=== PATIENT | male | born 1935 | race Caucasian/White ===

== ENCOUNTER 2023-05-26 13:26 | Outpatient (CLI) | payer MEDICARE ==
--- NOTE | 2023-05-26 14:41 | XRAY Report ---
PROCEDURE: Foot 3 View RT INDICATIONS: FOOT INFECTION,RIGHT TECHNIQUE: 3 views of the foot were acquired. COMPARISON: None. FINDINGS: Bones: There is cortical lucency and erosive changes at the tip of the third distal phalanx. Diffuse ly decreased osseous mineralization. Osteoarthritic changes of the interphalangeal joints and first m etatarsophalangeal. Subchondral lucency at the first MTP, may represent subchondral cystic changes. N o fractures or dislocations. Soft tissues: No suspicious soft tissue calcifications or masses. Soft tissue defect at the tip of t he third digit. Atherosclerotic vascular calcifications. IMPRESSION: Soft tissue defect at the tip of the third digit. The underlying bone at the tip of the distal third phalanx demonstrates cortical lucency and erosive changes, concerning for osteomyelitis. Reviewed by: Dwayne Porras MD on 05/26/2023 2:39 PM PDT Approved by: Dwayne Porras MD on 05/26/2023 2:39 PM PDT Station ID: [id number]
== END 2023-05-26 23:59 | disposition home or self-care (01) ==
LOC: DI.S 13:26
PROVIDERS: ATTEND Physician Assistant
DX: L08.9 Local infection of the skin and subcutaneous tissue, unspecified (principal); M85.871 Other specified disorders of bone density and structure, right ankle and foot

== ENCOUNTER 2023-09-04 10:49 | Outpatient (CLI) | payer MEDICARE ==
[2023-09-04 11:11] LABS: BASOPHILS # (AUTO) 0.1 10^3/uL (0.0-0.1); BASOPHILS % (AUTO) 0.9 %; EOSINOPHILS # (AUTO) 0.1 10^3/uL (0.0-0.7); HCT - HEMATOCRIT 46.5 % (42.0-52.0); HGB - HEMOGLOBIN 15.1 g/dL (14.0-18.0); LYMPHOCYTES # (AUTO) 1.6 10^3/uL (1.5-3.5); LYMPHOCYTES % (AUTO) 24.2 %; MEAN CORPUSCULAR HEMOGLOBIN 31.5 pg (27.0-31.0); MEAN CORPUSCULAR HGB CONC 32.5 g/dL (32.0-36.0); MEAN CORPUSCULAR VOLUME 96.9 fL (80.0-94.0); MEAN PLATELET VOLUME 11.8 fL (7.4-11.4); MONOCYTES # (AUTO) 0.6 10^3/uL (0.0-1.0); MONOCYTES % (AUTO) 9.8 %; NEUTROPHILS % (AUTO) 62.9 %; PLT - PLATELET COUNT 209 10^3/uL (130-450); RED CELL DISTRIBUTION WIDTH 16.7 % (12.0-15.0); WHITE BLOOD COUNT 6.4 x10^3/uL (4.8-10.8)
[2023-09-04 11:23] LABS: CALCIUM 10.4 mg/dL (8.5-10.3); CREATININE 1.4 mg/dL (0.6-1.3); POTASSIUM 4.6 mmol/L (3.5-4.5)
== END 2023-09-04 10:50 | disposition home or self-care (01) ==
LOC: LAB 10:49
PROVIDERS: ATTEND Internal Medicine Cardiovascular Disease
DX: I50.20 Unspecified systolic (congestive) heart failure (principal); I36.1 Nonrheumatic tricuspid (valve) insufficiency; I48.19 Other persistent atrial fibrillation
CPT/HCPCS: 36415; 80048; 83880; 85025

== ENCOUNTER 2023-09-14 09:51 | Outpatient (CLI) | payer MEDICARE ==
[2023-09-14 10:30] LABS: CHOL/HDL RATIO 3.8 (<5.0); CHOLESTEROL 190 mg/dL; HDL CHOLESTEROL 50 mg/dL; LDL CHOLESTEROL,CALCULATED 122 mg/dL; LDL/HDL RATIO 2.4 (<3.6); TRIGLYCERIDES 90 mg/dL (48-352); VLDL CHOLESTEROL 18 mg/dL
[2023-09-14 12:09] LABS: ESTIMATED AVERAGE GLUCOSE 120 mg/dL (70-100); HEMOGLOBIN A1c% 5.8 % (4.27-6.07)
== END 2023-09-14 09:52 | disposition home or self-care (01) ==
LOC: LAB 09:51
PROVIDERS: ATTEND Internal Medicine Cardiovascular Disease
DX: I50.22 Chronic systolic (congestive) heart failure (principal)
CPT/HCPCS: 36415; 80061; 83036; 83721

== ENCOUNTER 2023-10-09 14:02 | Outpatient (CLI) | payer MEDICARE | END 2023-10-09 14:03 | disposition home or self-care (01) | LOC: LAB 14:02 | PROVIDERS: ATTEND Family Medicine | DX: I48.21 Permanent atrial fibrillation (principal); Z51.81 Encounter for therapeutic drug level monitoring; Z79.01 Long term (current) use of anticoagulants | CPT/HCPCS: 36416; 85610 ==

== ENCOUNTER 2023-11-19 17:41 | Outpatient (CLI) | payer MEDICARE ==
[2023-11-19 18:53] LABS: ALBUMIN 3.9 g/dL (3.2-5.5); ALBUMIN/GLOBULIN RATIO 1.4 (1.0-2.2); BILIRUBIN,TOTAL 0.7 mg/dL (0.2-1.0); CALCIUM 9.9 mg/dL (8.5-10.3); CREATININE 1.5 mg/dL (0.6-1.3); TOTAL PROTEIN 6.7 g/dL (6.4-8.9)
== END 2023-11-19 17:42 | disposition home or self-care (01) ==
LOC: LAB 17:41
PROVIDERS: ATTEND Internal Medicine Cardiovascular Disease
DX: I50.22 Chronic systolic (congestive) heart failure (principal)
CPT/HCPCS: 36415; 80053

== ENCOUNTER 2023-11-26 14:06 | Outpatient (CLI) | payer MEDICARE | END 2023-11-26 14:07 | disposition home or self-care (01) | LOC: LAB 14:06 | PROVIDERS: ATTEND Family Medicine | DX: I82.409 Acute embolism and thrombosis of unspecified deep veins of unspecified lower extremity (principal) | CPT/HCPCS: 36416; 85610 ==

== ENCOUNTER 2023-12-01 12:00 | Outpatient (CLI) | payer MEDICARE ==
[2023-12-01 12:51] LABS: PT - PROTHROMBIN TIME 50.6 secs (9.9-12.6)
== END 2023-12-01 12:01 | disposition home or self-care (01) ==
LOC: LAB 12:00
PROVIDERS: ATTEND Family Medicine
DX: I82.409 Acute embolism and thrombosis of unspecified deep veins of unspecified lower extremity (principal)
CPT/HCPCS: 36415; 85610

== ENCOUNTER 2023-12-01 12:01 | Outpatient (CLI) | payer MEDICARE ==
[2023-12-01 12:44] LABS: CALCIUM 9.5 mg/dL (8.5-10.3); CREATININE 1.5 mg/dL (0.6-1.3); POTASSIUM 4.1 mmol/L (3.5-4.5)
== END 2023-12-01 12:02 | disposition home or self-care (01) ==
LOC: LAB 12:01
PROVIDERS: ATTEND Internal Medicine Cardiovascular Disease
DX: I50.22 Chronic systolic (congestive) heart failure (principal); I82.409 Acute embolism and thrombosis of unspecified deep veins of unspecified lower extremity
CPT/HCPCS: 36415; 80048; 85610

== ENCOUNTER 2023-12-10 13:47 | Outpatient (CLI) | payer MEDICARE | END 2023-12-10 13:48 | disposition home or self-care (01) | LOC: LAB 13:47 | PROVIDERS: ATTEND Family Medicine | DX: I73.9 Peripheral vascular disease, unspecified (principal); Z79.01 Long term (current) use of anticoagulants | CPT/HCPCS: 36416; 85610 ==

== ENCOUNTER 2023-12-15 13:39 | Outpatient (CLI) | payer MEDICARE ==
[2023-12-15 14:07] LABS: ALBUMIN 3.7 g/dL (3.2-5.5); ALBUMIN/GLOBULIN RATIO 1.5 (1.0-2.2); BILIRUBIN,TOTAL 0.5 mg/dL (0.2-1.0); CALCIUM 9.4 mg/dL (8.5-10.3); CREATININE 1.6 mg/dL (0.6-1.3); TOTAL PROTEIN 6.2 g/dL (6.4-8.9)
== END 2023-12-15 13:40 | disposition home or self-care (01) ==
LOC: LAB 13:39
PROVIDERS: ATTEND Internal Medicine Cardiovascular Disease
DX: I50.22 Chronic systolic (congestive) heart failure (principal); I82.409 Acute embolism and thrombosis of unspecified deep veins of unspecified lower extremity
CPT/HCPCS: 36415; 80053; 83930; 85610

== ENCOUNTER 2024-01-05 13:11 | Outpatient (CLI) | payer MEDICARE ==
[2024-01-05 13:58] LABS: CALCIUM 9.1 mg/dL (8.5-10.3); CREATININE 1.2 mg/dL (0.6-1.3); POTASSIUM 4.6 mmol/L (3.5-4.5)
--- NOTE | 2024-01-05 15:55 | XRAY Report ---
PROCEDURE: Toe(s) 2+V LT INDICATIONS: LEFT 4TH TOE OSTEOMYELITIS TECHNIQUE: 3 views of the fourth toe(s) acquired. COMPARISON: None. FINDINGS: Bones: No fractures or dislocations. No suspicious bony lesions. Partially visualized fixation of the medial malleolus. Hardware is intact without evidence of hardware fracture or periprosthetic luce ncy to suggest loosening. IP degenerative changes are present. There is erosion of the distal phalanx tuft of the fourth digit. Thinning of the cortex of the fifth distal phalanx tuft is also identified . Soft tissues: No suspicious soft tissue densities. Soft tissue edema is present of the fourth and t o a lesser degree fifth digit. IMPRESSION: Progressive appearance of the distal tuft of the fourth distal phalanx and subtle change in the fifth distal phalanx suggestive of osteomyelitis. Reviewed by: Karla Contreras MD on 01/05/2024 3:54 PM PDT Approved by: Karla Contreras MD on 01/05/2024 3:54 PM PDT Station ID: [id number]
== END 2024-01-05 13:12 | disposition home or self-care (01) ==
LOC: LAB 13:11 → DI 13:12
PROVIDERS: ATTEND Internal Medicine Cardiovascular Disease
DX: M86.672 Other chronic osteomyelitis, left ankle and foot (principal); I73.9 Peripheral vascular disease, unspecified; I50.22 Chronic systolic (congestive) heart failure; L97.524 Non-pressure chronic ulcer of other part of left foot with necrosis of bone
CPT/HCPCS: 36415; 73660; 80048

== ENCOUNTER 2024-01-11 16:38 | Emergency (ER) | payer MEDICARE ==
[2024-01-11 17:10] VITALS: BP 112/58; O2SAT 100
[2024-01-11 17:28] LABS: BASOPHILS % (AUTO) 0.5 %; EOSINOPHILS # (AUTO) 0.1 10^3/uL (0.0-0.7); EOSINOPHILS % (AUTO) 1.4 %; HCT - HEMATOCRIT 33.4 % (42.0-52.0); HGB - HEMOGLOBIN 10.9 g/dL (14.0-18.0); LYMPHOCYTES # (AUTO) 0.8 10^3/uL (1.5-3.5); LYMPHOCYTES % (AUTO) 12.8 %; MEAN CORPUSCULAR HEMOGLOBIN 32.3 pg (27.0-31.0); MEAN CORPUSCULAR HGB CONC 32.6 g/dL (32.0-36.0); MEAN CORPUSCULAR VOLUME 99.1 fL (80.0-94.0); MEAN PLATELET VOLUME 11.4 fL (7.4-11.4); MONOCYTES # (AUTO) 0.6 10^3/uL (0.0-1.0); MONOCYTES % (AUTO) 9.7 %; NEUTROPHILS # (AUTO) 4.9 10^3/uL (1.5-6.6); NRBC ABSOLUTE COUNT (AUTO) 0.12 x10^3/uL; NUCLEATED RED BLOOD CELLS AUTO 1.9 /100WBC; PLT - PLATELET COUNT 282 10^3/uL (130-450); RED BLOOD COUNT 3.37 10^6/uL (4.70-6.10); RED CELL DISTRIBUTION WIDTH 21.1 % (12.0-15.0); WHITE BLOOD COUNT 6.5 x10^3/uL (4.8-10.8)
[2024-01-11 17:36] LABS: PARTIAL THROMBOPLASTIN TIME 43.8 secs (24.9-33.3)
[2024-01-11 17:40] LABS: ALBUMIN 3.7 g/dL (3.2-5.5); ALBUMIN/GLOBULIN RATIO 1.5 (1.0-2.2); BILIRUBIN,TOTAL 0.9 mg/dL (0.2-1.0); CALCIUM 9.6 mg/dL (8.5-10.3); CREATININE 1.4 mg/dL (0.6-1.3); INR 2.7 (0.8-1.2); POTASSIUM 3.7 mmol/L (3.5-4.5); PT - PROTHROMBIN TIME 27.8 secs (9.9-12.6); TOTAL PROTEIN 6.2 g/dL (6.4-8.9)
--- NOTE | 2024-01-11 17:41 | ED Physician Documentation ---
History of Present Illness - Stated complaint Stated Complaint: ABNORMAL LABS - Chief complaint Chief Complaint: General - History obtained from History obtained from: Patient, Family - History of Present Illness Timing: How many weeks ago (1) Pain level max: 0 Pain level now: 0 - Additonal information Additional information: Patient is a 88-year-old male who presents to the emergency department stating that he was told to come in because his "blood counts were low" on a outpatient blood draw 1 week ago. His family states that he has been less active than usual. The patient states that he has not had any blood in the stool. No dark stools. No difficulty breathing. Has a history of heart failure and does have swelling in the bilateral feet. Sees Dr. Ramirez at [facility]. No abdominal pain. No chest pain. No vomiting. No fever. No headache. Review of Systems Constitutional: denies: Fever, Chills Respiratory: denies: Cough GI: denies: Vomiting, Hematemesis, Bloody / black stool Skin: denies: Rash Musculoskeletal: denies: Neck pain, Back pain Neurologic: denies: Headache PD PAST MEDICAL HISTORY - Past Medical History Past Medical History: Yes Cardiovascular: Congestive heart failure : Other Other Past Medical History: PAD of the left leg. - Present Medications Home Medications: Ambulatory Orders Medication Instructions Recorded Confirmed Dutasteride 0.5 mg PO DAILY 08/06/23 12/17/23 Furosemide [Lasix] 20 mg PO DAILY 08/06/23 12/17/23 Losartan Potassium 25 mg PO DAILY 08/06/23 12/17/23 Montelukast [Singulair] 10 mg PO QPM 08/06/23 12/17/23 Potassium Chloride 20 meq PO DAILY 08/06/23 12/17/23 Tamsulosin [Flomax] 0.4 mg PO DAILY 08/06/23 12/17/23 Warfarin [Coumadin] 2.5 mg PO DAILY 08/06/23 12/17/23 allopurinoL [Allopurinol] 300 mg PO DAILY 08/06/23 12/17/23 Atorvastatin Calcium 40 mg PO DAILY 09/17/23 12/17/23 Metoprolol Succinate [Toprol Xl] 25 mg PO DAILY 09/17/23 12/17/23 Spironolactone [Aldactone] 25 mg PO BID 09/17/23 12/17/23 Doxycycline Hyclate 100 mg PO BID 30 Days #60 cap 01/05/24 - Allergies Allergies/Adverse Reactions: Allergies Allergy/AdvReac Type Severity Reaction Status Date / Time No Known Drug Allergies Allergy Verified 01/11/24 17:03 - Social History Does the pt smoke?: No Smoking Status: Never smoker PD ED PE NORMAL - Vitals Vital signs reviewed: Yes - General General: Alert and oriented X 3, No acute distress - HEENT HEENT: Moist mucous membranes - Neck Neck: Supple, no meningeal sign - Cardiac Cardiac: RRR, No murmur, Strong equal pulses - Respiratory Respiratory: No respiratory distress, Clear bilaterally - Abdomen Abdomen: Soft, Non tender, Non distended - Derm Derm: Warm and dry - Extremities Extremities: Other (1+ bilateral lower extremity pitting edema.) - Neuro Neuro: Alert and oriented X 3 - Psych Psych: Normal mood, Normal affect Results - Vitals Vitals: Vital Signs - 24 hr 01/11/24 01/11/24 16:57 17:03 Temperature 36.5 C 36.5 C Heart Rate 63 63 Respiratory 18 18 Rate Blood Pressure 112/58 L 112/58 L O2 Saturation 100 100 Oxygen O2 Source Room air - Labs Labs: Laboratory Tests 01/11/24 01/11/24 01/11/24 17:18 17:18 17:18 WBC 6.5 RBC 3.37 L Hgb 10.9 L Hct 33.4 L MCV 99.1 H MCH 32.3 H MCHC 32.6 RDW 21.1 H Plt Count 282 MPV 11.4 Neut # (Auto) 4.9 Lymph # (Auto) 0.8 L [place] # (Auto) 0.6 Eos # (Auto) 0.1 Baso # (Auto) 0.0 Absolute Nucleated RBC 0.12 Nucleated RBC % 1.9 PT 27.8 H INR 2.7 H APTT 43.8 H Sodium 135 Potassium 3.7 Chloride 102 Carbon Dioxide 26 Anion Gap 7.0 BUN 40 H Creatinine 1.4 H Estimated GFR (MDRD) 48 L Glucose 118 H Calcium 9.6 Total Bilirubin 0.9 AST 17 ALT 18 Alkaline Phosphatase 65 Total Protein 6.2 L Albumin 3.7 Globulin 2.5 Albumin/Globulin Ratio 1.5 PD Medical Decision Making - ED course Complexity details: reviewed results, re-evaluated patient, considered differential, d/w patient ED course: Patient is well-appearing, nontoxic. Afebrile. No significant lab abnormalities. Hemoglobin was 9.8 last week, 10.9 today. Does not have any signs of bleeding. INR is therapeutic. His creatinine is improved from usual. Will have him continue his diuretics. No hypoxia. No indication of pulmonary edema. Will have him follow-up with his PCP regarding his anemia. Patient counseled regarding signs and symptoms for which I believe and urgent re- evaluation would be necessary. Patient with good understanding of and agreement to plan and is comfortable going home at this time This document was made in part using voice recognition software. While efforts are made to proofread this document, sound alike and grammatical errors may occur. Departure - Departure Disposition: 01 Home, Self Care Clinical Impression: Anemia Qualifiers: Anemia type: unspecified type Qualified Code(s): D64.9 - Anemia, unspecified Condition: Good Instructions: ED Anemia Type Not Specified Follow-Up: your,doctor in 1 week [Other] Comments: As we discussed your hemoglobin is 10.9 today. This is up from 9.8 last week. His INR is 2.7. His creatinine is 1.4. Please continue your current medications at home and follow-up with your doctor for further care. Please return if you worsen, especially for blood in the stool, dark or tarry stools. Please return for chest pain or increasing shortness of breath. Forms: PCP List Discharge Date/Time: 01/11/24 18:04
== END 2024-01-11 18:04 | disposition home or self-care (01) ==
LOC: ED 16:38
DX: D64.9 Anemia, unspecified (principal); I50.9 Heart failure, unspecified; I73.9 Peripheral vascular disease, unspecified; Z79.01 Long term (current) use of anticoagulants; Z79.899 Other long term (current) drug therapy
CPT/HCPCS: 36415; 80053; 85025; 85610; 85730; 99283

== ENCOUNTER 2024-01-22 19:06 | Emergency (ER) | payer MEDICARE ==
--- NOTE | 2024-01-22 19:30 | ED Physician Documentation ---
History of Present Illness - Stated complaint Stated Complaint: ANEMIA - Chief complaint Chief Complaint: General - History obtained from History obtained from: Patient, Family - History of Present Illness Timing: Today Pain level max: 0 Pain level now: 0 - Additonal information Additional information: Patient is an 88-year-old male who presents to the emergency department stating he was told to come here by his infectious disease doctor for "anemia". States on outpatient lab draw at [facility] today hemoglobin was 10.8 and hematocrit of 32. He states he is not short of breath, not lightheaded, not dizzy, not weak. Does not have any GI bleeding. He is on warfarin. He is fully asymptomatic. Review of Systems Constitutional: denies: Fever, Chills GI: denies: Vomiting, Diarrhea Skin: denies: Rash Musculoskeletal: denies: Neck pain, Back pain Neurologic: denies: Headache PD PAST MEDICAL HISTORY - Past Medical History Past Medical History: Yes Cardiovascular: Congestive heart failure : Other - Past Surgical History Past Surgical History: Yes - Present Medications Home Medications: Ambulatory Orders Medication Instructions Recorded Confirmed Dutasteride 0.5 mg PO DAILY 08/06/23 12/17/23 Furosemide [Lasix] 20 mg PO DAILY 08/06/23 12/17/23 Losartan Potassium 25 mg PO DAILY 08/06/23 12/17/23 Montelukast [Singulair] 10 mg PO QPM 08/06/23 12/17/23 Potassium Chloride 20 meq PO DAILY 08/06/23 12/17/23 Tamsulosin [Flomax] 0.4 mg PO DAILY 08/06/23 12/17/23 Warfarin [Coumadin] 2.5 mg PO DAILY 08/06/23 12/17/23 allopurinoL [Allopurinol] 300 mg PO DAILY 08/06/23 12/17/23 Atorvastatin Calcium 40 mg PO DAILY 09/17/23 12/17/23 Metoprolol Succinate [Toprol Xl] 25 mg PO DAILY 09/17/23 12/17/23 Spironolactone [Aldactone] 25 mg PO BID 09/17/23 12/17/23 Doxycycline Hyclate 100 mg PO BID 30 Days #60 cap 01/05/24 - Allergies Allergies/Adverse Reactions: Allergies Allergy/AdvReac Type Severity Reaction Status Date / Time No Known Drug Allergies Allergy Verified 01/22/24 19:11 - Social History Does the pt smoke?: No Smoking Status: Never smoker Does the pt drink ETOH?: No Does the pt have substance abuse?: No - Immunizations Immunizations are current?: Yes PD ED PE NORMAL - Vitals Vital signs reviewed: Yes - General General: Alert and oriented X 3, No acute distress - HEENT HEENT: PERRL, Moist mucous membranes - Neck Neck: Supple, no meningeal sign - Cardiac Cardiac: RRR, Strong equal pulses - Respiratory Respiratory: No respiratory distress, Clear bilaterally - Abdomen Abdomen: Soft, Non tender, Non distended - Derm Derm: Warm and dry - Neuro Neuro: Alert and oriented X 3 - Psych Psych: Normal mood, Normal affect Results - Vitals Vitals: Vital Signs - 24 hr 01/22/24 01/22/24 01/22/24 19:11 19:21 20:04 Temperature 36.2 C L Heart Rate 61 62 64 Respiratory 13 16 Rate Blood Pressure 112/49 L 115/52 L O2 Saturation 100 98 Oxygen O2 Source Room air PD Medical Decision Making - ED course Complexity details: considered differential, d/w patient, d/w family, d/w device sales consultant ED course: Patient is asymptomatic here. His outpatient lab draw at [facility] with a hemoglobin of 10.8 and is basically unchanged from his hemoglobin here 2 weeks ago. He is asymptomatic. Hemoglobin here was 10.9. No indication to repeat laboratory testing at this time. No emergency medical condition at this time. Discussed with the physician who referred him here, they did not have his most recent lab values. They agree that no repeat testing is needed at this time. This document was made in part using voice recognition software. While efforts are made to proofread this document, sound alike and grammatical errors may occur. Departure - Departure Disposition: 01 Home, Self Care Clinical Impression: Anemia Qualifiers: Anemia type: unspecified type Qualified Code(s): D64.9 - Anemia, unspecified Condition: Good Instructions: ED Anemia Type Not Specified Follow-Up: JATINDER HYLTON MD [Primary Care Provider] - Within 1 week Comments: Your hemoglobin at [facility] was 10.8 today. It was 10.9 here on January 11 2024. Hematocrit was 33 here on January 11 2024 and 32 at [facility] today. This does not represent any significant changes. You can follow-up with your doctor for further care. Please return if you develop symptoms such as shortness of breath, weakness, chest pain, black or bloody stools, or other new or worrisome symptoms. Forms: PCP List Discharge Date/Time: 01/22/24 20:04
[2024-01-22 20:13] VITALS: BP 115/52; O2SAT 98
== END 2024-01-22 20:04 | disposition home or self-care (01) ==
LOC: ED 19:06
DX: D64.9 Anemia, unspecified (principal); I50.9 Heart failure, unspecified; Z79.01 Long term (current) use of anticoagulants; Z79.899 Other long term (current) drug therapy
CPT/HCPCS: 99282; 99283

== ENCOUNTER 2024-01-25 11:18 | Outpatient (CLI) | payer MEDICARE | END 2024-01-25 11:19 | disposition home or self-care (01) | LOC: LAB 11:18 | PROVIDERS: ATTEND Family Medicine | DX: I82.409 Acute embolism and thrombosis of unspecified deep veins of unspecified lower extremity (principal) | CPT/HCPCS: 36416; 85610 ==

== ENCOUNTER 2024-05-18 15:27 | Outpatient (CLI) | payer MEDICARE ==
--- NOTE | 2024-05-18 17:53 | XRAY Report ---
PROCEDURE: Foot 3+V RT INDICATIONS: OSTEOMYELITIS RIGHT 2ND TOE TECHNIQUE: 3 views of the foot were acquired. COMPARISON: 05/26/2023 FINDINGS: Bones: Julian bony erosion can be seen involving the distal aspect of the distal phalanx of the secon d toe. This is clearly changed compared to the prior plain film. Focal degenerative change can be seen involving the first metatarsophalangeal joint, with irregularit y. This is similar to the prior examination. Soft tissues: Soft tissue irregularity of the distal second toe can be seen. Generalized distal soft tissue swelling can be seen of the foot. No tibiotalar joint effusion. Achilles tendon appears norm al. Atherosclerotic calcification is seen. IMPRESSION: Distal second osteomyelitis. If clinically appropriate, please consider a follow-up foot MRI (without and with contrast) for furth er evaluation (assuming that there is no contraindication). Reviewed by: Len Dugan MD on 05/18/2024 4:52 PM [place] Approved by: Len Dugan MD on 05/18/2024 4:52 PM [place] Station ID: [id number]
== END 2024-05-18 15:28 | disposition home or self-care (01) ==
LOC: DI 15:27
PROVIDERS: ATTEND Family Medicine
DX: I73.9 Peripheral vascular disease, unspecified (principal); L08.9 Local infection of the skin and subcutaneous tissue, unspecified; L97.516 Non-pressure chronic ulcer of other part of right foot with bone involvement without evidence of necrosis; M86.9 Osteomyelitis, unspecified

== ENCOUNTER 2024-05-19 10:01 | Outpatient (CLI) | payer MEDICARE | END 2024-05-19 23:59 | disposition critical access hospital (66) | LOC: EMS 10:01 | DX: R07.1 Chest pain on breathing (principal); R53.1 Weakness | CPT/HCPCS: A0425; A0429 ==

== ENCOUNTER 2024-05-19 10:27 | Inpatient (IN) | payer MEDICARE ==
--- NOTE | 2024-05-19 11:08 | ED Physician Documentation ---
History of Present Illness - Stated complaint Stated Complaint: CHEST PX - Chief complaint Chief Complaint: General - Additonal information Additional information: Patient is an 88-year-old male who presents to the emergency department with s ignificant past medical history of peripheral vascular disease, history of atrial fibrillation, severe CHF chronic foot wounds who presents with chest pain to the emergency department. Patient notes he was lifting heavy objects yesterday and started to have chest pain after he woke up around 8 AM this morning. Patient was noticeably more weak by his daughter, and he was able to go to the bathroom this morning but when he had to get up from the toilet he was unable to. Patient notes weakness appears to be in both his legs and chest pain is across to his anterior chest. With no radiation to his back or arms. Patient notes pain does seem to start in his epigastric region. He did not take anything for his symptoms this morning. Patient was brought in by EMS due to his weakness this morning. Patient follows with wound care from Dr. Prieto for chronic foot wounds. Patient does have new second digit wound that was wrapped yesterday. He is to start on doxycycline but has not picked up the medication PD PAST MEDICAL HISTORY - Past Medical History Cardiovascular: Congestive heart failure : Other - Past Surgical History Past Surgical History: Yes - Present Medications Home Medications: Ambulatory Orders Medication Instructions Recorded Confirmed Dutasteride 0.5 mg PO DAILY 08/06/23 05/19/24 Furosemide [Lasix] 20 mg PO UD 08/06/23 05/19/24 Losartan Potassium 12.5 mg PO DAILY 08/06/23 05/19/24 Montelukast [Singulair] 10 mg PO QPM 08/06/23 05/19/24 Tamsulosin [Flomax] 2 cap PO DAILY 08/06/23 05/19/24 allopurinoL [Allopurinol] 300 mg PO DAILY 08/06/23 05/19/24 Atorvastatin Calcium 40 mg PO DAILY 09/17/23 05/19/24 Metoprolol Succinate [Toprol Xl] 12.5 mg PO BID 09/17/23 05/19/24 Spironolactone [Aldactone] 25 mg PO BID 09/17/23 05/19/24 Omeprazole 40 mg PO DAILY 03/23/24 05/19/24 Doxycycline Hyclate 100 mg PO BID 30 Days #60 cap 05/18/24 05/19/24 Empagliflozin [Jardiance] 5 mg PO DAILY 05/18/24 05/19/24 Warfarin [Coumadin] 2.5 mg PO DAILY 05/19/24 05/19/24 - Allergies Allergies/Adverse Reactions: Allergies Allergy/AdvReac Type Severity Reaction Status Date / Time No Known Drug Allergies Allergy Verified 05/19/24 10:38 - Social History Does the pt smoke?: No Smoking Status: Never smoker Does the pt drink ETOH?: No Does the pt have substance abuse?: No - Immunizations Immunizations are current?: Yes PD ED PE NORMAL - Vitals Vital signs reviewed: Yes - General General: Alert and oriented X 3 - HEENT HEENT: Atraumatic - Neck Neck: Supple, no meningeal sign - Cardiac Cardiac: Other (Systolic murmur on auscultation.) - Respiratory Respiratory: No respiratory distress - Abdomen Abdomen: Normal bowel sounds - Extremities Extremities: Other (No palpable pulses on examination of lower extremities bilaterally.Significant edema wiht 2 + pitting noted bilaterally to pretibial area) - Neuro Neuro: Alert and oriented X 3 Eye Opening: Spontaneous Motor: Obeys Commands Verbal: Oriented GCS Score: 15 - Psych Psych: Normal mood Results - Vitals Vitals: Vital Signs - 24 hr 05/19/24 05/19/24 05/19/24 10:33 12:38 14:00 Temperature 36.8 C Heart Rate 62 68 60 Respiratory 16 20 26 H Rate Blood Pressure 122/68 109/63 107/53 L O2 Saturation 97 99 99 Oxygen O2 Source Room air - EKG (time done) 1230 EKG releavant findings:: EKG personally interpreted by author of this note. Relevant findings are: Rate: Rate (enter#), Roger, Tachy, Other Rhythm: Other (Ventricular paced rhythm) Compare to prior EKG: Unchanged from prior EKG Computer interpretation: Agree with computer 1300 EKG releavant findings:: EKG personally interpreted by author of this note. Relevant findings are: Rate: Rate (enter#) Rhythm: Other (Ventricular paced rhythm) Ischemia: Normal ST segments Compare to prior EKG: Unchanged from prior EKG Computer interpretation: Agree with computer - Labs Labs: Laboratory Tests 05/19/24 05/19/24 05/19/24 11:52 11:52 11:52 WBC 19.9 H RBC 3.54 L Hgb 11.0 L Hct 33.3 L MCV 94.1 H MCH 31.1 H MCHC 33.0 RDW 18.1 H Plt Count 186 MPV 12.2 H Neut # (Auto) 17.4 H Lymph # (Auto) 1.1 L [place] # (Auto) 1.3 H Eos # (Auto) 0.0 Baso # (Auto) 0.0 Absolute Nucleated RBC 0.04 Nucleated RBC % 0.2 PT 30.2 H INR 3.0 H APTT Sodium 133 L Potassium 4.1 Chloride 103 Carbon Dioxide 22 Anion Gap 8.0 BUN 43 H Creatinine 1.5 H Estimated GFR (MDRD) 44 L Glucose 121 H Lactic Acid Calcium 9.6 Total Bilirubin 2.6 H AST 38 ALT 44 Alkaline Phosphatase 94 Total Creatine Kinase 255 H Troponin I High Sens 220.8 H* B-Natriuretic Peptide Total Protein 6.5 Albumin 3.7 Globulin 2.8 Albumin/Globulin Ratio 1.3 Procalcitonin Immunoas Urine Color Urine Clarity Urine pH Ur Specific [place] Urine Protein Urine Glucose (UA) Urine Ketones Urine Occult Blood Urine Nitrite Urine Bilirubin Urine Urobilinogen Ur Leukocyte Esterase Urine RBC Urine WBC Ur Squamous Epith Cells Amorphous Sediment Urine Bacteria Urine Casts Ur Microscopic Review Urine Culture Comments 05/19/24 05/19/24 05/19/24 11:52 11:52 11:52 WBC RBC Hgb Hct MCV MCH MCHC RDW Plt Count MPV Neut # (Auto) Lymph # (Auto) [place] # (Auto) Eos # (Auto) Baso # (Auto) Absolute Nucleated RBC Nucleated RBC % PT INR APTT 45.3 H Sodium Potassium Chloride Carbon Dioxide Anion Gap BUN Creatinine Estimated GFR (MDRD) Glucose Lactic Acid Calcium Total Bilirubin AST ALT Alkaline Phosphatase Total Creatine Kinase Troponin I High Sens B-Natriuretic Peptide 1343 H Total Protein Albumin Globulin Albumin/Globulin Ratio Procalcitonin Immunoas 8.75 H* Urine Color Urine Clarity Urine pH Ur Specific [place] Urine Protein Urine Glucose (UA) Urine Ketones Urine Occult Blood Urine Nitrite Urine Bilirubin Urine Urobilinogen Ur Leukocyte Esterase Urine RBC Urine WBC Ur Squamous Epith Cells Amorphous Sediment Urine Bacteria Urine Casts Ur Microscopic Review Urine Culture Comments 05/19/24 05/19/24 05/19/24 13:41 13:41 14:37 WBC RBC Hgb Hct MCV MCH MCHC RDW Plt Count MPV Neut # (Auto) Lymph # (Auto) [place] # (Auto) Eos # (Auto) Baso # (Auto) Absolute Nucleated RBC Nucleated RBC % PT INR APTT Sodium Potassium Chloride Carbon Dioxide Anion Gap BUN Creatinine Estimated GFR (MDRD) Glucose Lactic Acid 1.7 Calcium Total Bilirubin AST ALT Alkaline Phosphatase Total Creatine Kinase Troponin I High Sens 219.9 H* B-Natriuretic Peptide Total Protein Albumin Globulin Albumin/Globulin Ratio Procalcitonin Immunoas Urine Color DARK YELLOW Urine Clarity CLEAR Urine pH 5.5 Ur Specific [place] 1.020 Urine Protein TRACE Urine Glucose (UA) >=1000 H Urine Ketones NEGATIVE Urine Occult Blood SMALL H Urine Nitrite NEGATIVE Urine Bilirubin NEGATIVE Urine Urobilinogen 0.2 (NORMAL) Ur Leukocyte Esterase NEGATIVE Urine RBC 0-5 Urine WBC 0-3 Ur Squamous Epith Cells FEW Squamous Amorphous Sediment Rare Urine Bacteria None Seen Urine Casts 0-2 Hyaline Casts Ur Microscopic Review INDICATED Urine Culture Comments NOT INDICATED - Rads (name of study) Chest X-ray Relevant Findings:: EMP independent interpretation of test (Significant findings of bilateral opacities appreciated) PD Medical Decision Making - ED course Complexity details: reviewed old records, reviewed results, re-evaluated p atient, considered differential, d/w patient, d/w family ED course: Patient is an 88-year-old male with significant past medical history of peripheral vascular disease atrial fibrillation with on warfarin and history of pacemaker. Patient presents to the emergency department with chest pain going on intermittently for the past 1 day. Patient notes about 2 days ago he was lifting some heavy objects and thought his chest pain was due to this however he felt too weak to get up off the toilet when he walked there this morning and EMS had to be called. Vital stable on arrival physical exam shows no reproducible chest pain mild swelling to bilateral lower legs with chronic ulcers noted. Labs here in the emergency department showed elevated troponin at 1230 around 2 20. Patient's EKG performed at 1230 shows atrial fibrillation/flutter and ventricular paced rhythm no signs of ST changes. Chest x-ray here in the emergency department shows findings concerning for right basilar opacities concerning for pneumonia with small right and left effusions. Procalcitonin significantly elevated at 8.8 here in emergency department lactic acid added onto blood cultures pending. Lactic acid returned within normal range less than 2 patient was started on ceftriaxone and doxycycline, given patient is currently on Warfarin, no azithromycin given. Will hold off on fluids given history of chf, and no significant signs of severe sepsis or septic shock at this time given stable vitals here in emergency department. Repeat troponin at 2-hour martin shows no significant elevation does appear to be downtrending. Discussed with patient he is safe for admission at this time. He declined any topical nitroglycerin here in emergency department and elevated troponin most likely secondary to demand ischemia from pneumonia. Patient agreeable with admission and discussed case with hospitalist who is agreeable with admission as well. Patient will be placed in observation room. Departure - Departure Disposition: ED Place in Observation Clinical Impression: Bilateral pneumonia, Cough, Chest pain, Chronic foot ulcer, Elevated troponin level not due myocardial infarction, Venous insufficiency (chronic) (peripheral) Forms: PCP List
[2024-05-19 12:00] LABS: BASOPHILS % (AUTO) 0.2 %; HCT - HEMATOCRIT 33.3 % (42.0-52.0); LYMPHOCYTES # (AUTO) 1.1 10^3/uL (1.5-3.5); LYMPHOCYTES % (AUTO) 5.4 %; MEAN CORPUSCULAR HEMOGLOBIN 31.1 pg (27.0-31.0); MEAN CORPUSCULAR VOLUME 94.1 fL (80.0-94.0); MEAN PLATELET VOLUME 12.2 fL (7.4-11.4); MONOCYTES # (AUTO) 1.3 10^3/uL (0.0-1.0); MONOCYTES % (AUTO) 6.3 %; NEUTROPHILS # (AUTO) 17.4 10^3/uL (1.5-6.6); NEUTROPHILS % (AUTO) 87.3 %; NRBC ABSOLUTE COUNT (AUTO) 0.04 x10^3/uL; NUCLEATED RED BLOOD CELLS AUTO 0.2 /100WBC; PLT - PLATELET COUNT 186 10^3/uL (130-450); RED BLOOD COUNT 3.54 10^6/uL (4.70-6.10); RED CELL DISTRIBUTION WIDTH 18.1 % (12.0-15.0); WHITE BLOOD COUNT 19.9 x10^3/uL (4.8-10.8)
[2024-05-19 12:04] LABS: PT - PROTHROMBIN TIME 30.2 secs (9.9-12.6)
[2024-05-19 12:15] LABS: ALBUMIN 3.7 g/dL (3.2-5.5); ALBUMIN/GLOBULIN RATIO 1.3 (1.0-2.2); BILIRUBIN,TOTAL 2.6 mg/dL (0.2-1.0); CALCIUM 9.6 mg/dL (8.5-10.3); CREATININE 1.5 mg/dL (0.6-1.3); POTASSIUM 4.1 mmol/L (3.5-4.5); TOTAL PROTEIN 6.5 g/dL (6.4-8.9)
[2024-05-19 12:22] LABS: TROPONIN I HIGH SENSITIVITY 220.8 ng/L (2.3-19.7)
--- NOTE | 2024-05-19 12:40 | XRAY Report ---
PROCEDURE: Chest 1V INDICATIONS: CHEST PAIN TECHNIQUE: One view of the chest was acquired. COMPARISON: None. FINDINGS: Surgical changes and devices: Left chest wall pulse. Her with electrode leads in place Lungs and pleura: Small bilateral effusions. Retrocardiac consolidation is present. Mild lower lung opacities also seen. Mild diffuse interstitial prominence. Mediastinum: Cardiomegaly Bones and chest wall: Degenerative changes IMPRESSION: Bibasilar opacities, greater on the left, and small effusions with interstitial prominence. Findings may represent edema versus superimposed infection. Cardiomegaly. Consider future imaging surveillance to assess for resolution. Reviewed by: Mack Darden MD on 05/19/2024 12:38 PM PDT Approved by: Mack Darden MD on 05/19/2024 12:38 PM PDT Station ID: [id number]
[2024-05-19] MEDS: NITROGLYCERIN 2% PASTE TOP STA (13:28)
[2024-05-19] MEDS: cefTRIAXone 1 GM in SODIUM CHLORIDE 0.9% MINIBAG 100 ML IV STA (13:50)
[2024-05-19] MEDS: DOXYCYCLINE INJ 100 MG in SODIUM CHLORIDE 0.9% MINIBAG 100 ML IV STA (14:36)
[2024-05-19 14:45] LABS: BILIRUBIN,URINE NEGATIVE (NEGATIVE); GLUCOSE, URINE (UA) >=1000 mg/dL (NEGATIVE); KETONES,URINE (UA) NEGATIVE (NEGATIVE); LEUKOCYTE ESTERASE, URINE NEGATIVE (NEGATIVE); NITRITE,URINE NEGATIVE (NEGATIVE); OCCULT BLOOD,URINE SMALL (NEGATIVE); PH,URINE 5.5 PH (5.0-7.5); PROTEIN,URINE TRACE mg/dL (NEGATIVE); UROBILINOGEN,URINE 0.2 (NORMAL) E.U./dL (NORMAL)
[2024-05-19 15:00] LABS: AMORPHOUS SEDIMENT,UR Rare /LPF; BACTERIA,URINE None Seen /HPF (None Seen); CLARITY,URINE CLEAR (CLEAR); RBC,URINE 0-5 /HPF (0-5); SQUAMOUS EPITHELIAL CELL,UR FEW Squamous (<= Few); WBC,URINE 0-3 /HPF (0-3)
[2024-05-19] MEDS ORDERED: ONDANSETRON ODT 4 MG TABLET TL PRN (18:00)
--- NOTE | 2024-05-19 18:12 | HISTORY & PHYSICAL EXAMINATION ---
Chief Complaint - Chief Complaint Chief Complaint: I felt weak History of Present Illness - Admitted From Admitted From:: [facility] Emergency Department - History Obtained From Records Reviewed: EMR, Patient provided History obtained from: Patient and family Exam Limitations: None - History of Present Illness HPI Comment/Other: Mr. 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 The patient indicates that over the past 3 to 4 days he has been having a cough that is productive of clear phlegm but he denies any significant shortness of breath at rest, orthopnea, PND, fevers, chills, rhinorrhea, sore throat or sick contacts. Two days ago he was lifting a heavy object up into his truck and then he developed some substernal chest pain that is intermittent in nature. It is josé luis p and very brief, lasting only 1 to 2 seconds before going away. Typically this comes when he tries to move something but he denies having any pleurisy or changes with lying flat versus sitting forward. Denies any nausea, diaphoresis, palpitations. In the past couple days he has also been having increasing generalized weakness and fatigue with malaise. Today he was having difficulty ambulating because he felt too weak to walk. He denies any focal neurologic deficit and has no headache, slurred speech or facial droop. Family noticed this and brought him to the emergency department for further evaluation. In the emergency department he was found to be afebrile with stable vital signs. His labs showed a WBC of 19.5 along with a creatinine of 1.5. His lactic acid was normal at 1.7 but his procalcitonin was elevated to 8.75. His BNP was 1340 and his troponin was elevated to 221 with a repeat troponin several hours later remaining stable at 220. His EKG appeared nonischemic in nature. His chest x- ray showed findings concerning for bibasilar pneumonia and blood cultures were o btained and he was given IV ceftriaxone and doxycycline and admitted for further care. Of note he has a history of chronic wounds to his feet with poor healing, usually on the left where he had a chronic wound for over a year that he was being followed in wound care, but that wound finally closed up on his toe. Several weeks ago he banged his right second toe on a door which caused it to break open and bleed extensively. He went to wound care yesterday and they felt that the right second toe was infected thus they prescribed doxycycline. He does follow with Dr. Dalton of vascular surgery at [facility] in [place]. Also of note he reports following with Dr. Ramirez in cardiology at [facility], who is concerned that he may have cardiac amyloidosis. Next week he is scheduled for a nuclear medicine study to evaluate for amyloidosis. The following week he is apparently scheduled to be evaluated at the cardiology clinic in [place] for a possible Watchman for his atrial fibrillation. The patient indicates he is also being referred to hematology, who is supposed to evaluate him today. The patient and his family member are not entirely sure why this evaluation was going to happen. History - Past Medical History Cardiovascular: reports: Congestive heart failure (LVEF 50-55% (previouslt 35- 40%), possibly Cardiac Amyloidosis), Peripheral Vascular Disease (Left lower > right lower), Atrial fibrillation, Arrhythmia (Complete Heart Block s/p PPM) GI: reports: GI bleed (February [address] [facility]) : reports: Benign prostate hypertrophy, Other Musculoskeletal: reports: Gout MRSA Hx?: No - Past Surgical History Cardiovascular: reports: Pacemaker, Other (Attempted angioplasty to left lower extremity, was not successful) - Family & Social History Family History: Other family: CAD, Hypertension - Substance History Use: Uses substance without health or social issues: NONE - POLST Patient has POLST: Yes POLST Status: DNR Meds/Allgy - Home Medications Home Medications: Ambulatory Orders Medication Instructions Recorded Confirmed Dutasteride 0.5 mg PO DAILY 08/06/23 05/19/24 Furosemide [Lasix] 20 mg PO UD 08/06/23 05/19/24 Losartan Potassium 12.5 mg PO DAILY 08/06/23 05/19/24 Montelukast [Singulair] 10 mg PO QPM 08/06/23 05/19/24 Tamsulosin [Flomax] 2 cap PO DAILY 08/06/23 05/19/24 allopurinoL [Allopurinol] 300 mg PO DAILY 08/06/23 05/19/24 Atorvastatin Calcium 40 mg PO DAILY 09/17/23 05/19/24 Metoprolol Succinate [Toprol Xl] 12.5 mg PO BID 09/17/23 05/19/24 Spironolactone [Aldactone] 25 mg PO BID 09/17/23 05/19/24 Omeprazole 40 mg PO DAILY 03/23/24 05/19/24 Doxycycline Hyclate 100 mg PO BID 30 Days #60 cap 05/18/24 05/19/24 Empagliflozin [Jardiance] 5 mg PO DAILY 05/18/24 05/19/24 Warfarin [Coumadin] 2.5 mg PO DAILY 05/19/24 05/19/24 - Allergies Allergies/Adverse Reactions: Allergies Allergy/AdvReac Type Severity Reaction Status Date / Time No Known Drug Allergies Allergy Verified 05/19/24 10:38 Review of Systems - Constitutional Constitutional: reports: Malaise, Weakness. denies: Fever, Chills - Eyes Eyes: denies: Blurred vision - Ears, Nose & Throat Ears, Nose & Throat: denies: Tinnitus, Vertigo - Cardiovascular Cariovascular: reports: Irregular heart rate, Chest pain, Edema. denies: Syncope - Respiratory Respiratory: reports: Cough, Sputum production, SOB with exertion. denies: Wheezing, Hemoptysis, Orthopnea, SOB at rest - Gastrointestinal Gastrointestinal: denies: Abdominal pain, Diarrhea, Black stools, Nausea, Vomiting - Genitourinary Genitourinary: denies: Dysuria, Hematuria - Musculoskeletal Musculoskeletal: reports: Muscle aches - Integumentary Integumentary: denies: Rash - Neurological Neurological: reports: General weakness, Numbness (Chronic neuropathy to lower extremities). denies: Focal weakness, Headache, Dizziness - Psychiatric Psychiatric: denies: Depression - Endocrine Endocrine: denies: Polyuria - Hematologic/Lymphatic Hematologic/Lymphatic: reports: Bruising. denies: Blood clots - All Other Systems All Other Systems: reports: Reviewed and negative Exam - Vital Signs Reviewed Vital Signs: Yes Vital Signs: Vital Signs x48h Temp Pulse Resp BP Pulse Ox 05/19/24 16:30 60 28 H 128/59 L 97 05/19/24 14:00 60 26 H 107/53 L 99 05/19/24 12:38 68 20 109/63 99 05/19/24 10:33 36.8 C 62 16 122/68 97 - Physical Exam General Appearance: positive: No acute distress, Alert, Other (Appears chronically ill but no acute distress.) Eyes Bilateral: positive: Normal inspection, PERRL, EOMI ENT: positive: ENT inspection nml, Pharynx nml, No signs of dehydration Neck: positive: Nml inspection, Thyroid nml, Trachea midline Respiratory: positive: Chest non-tender, No respiratory distress, Breath sounds nml, Rales (Subtle inspiratory crackles in bilateral bases.). negative: Wheezes, Rhonchi Cardiovascular: positive: Regular rate & rhythm, No murmur, No gallop, JVD present (Mild JVD elevation while sitting at 40 degrees in the hospital bed) Peripheral Pulses: positive: Other (DP pulse on the left is thready with cap refill approximately 2 seconds. DP pulse on the right is 1+ with cap refill between 1 to 2 seconds.) Abdomen: positive: Non-tender, No organomegaly, Nml bowel sounds, No distention Back: positive: Nml inspection Skin: positive: Color nml, No rash, Warm, Dry Extremities: positive: Non-tender, Pedal edema (Has 2+ pitting edema on the right and 1+ pitting edema on the left.), Other (Left fourth toe with old wound that is healed. Right second toe with wound that is dressed and right toe is erythematous but with appropriate cap refill.) Neurologic/Psychiatric: positive: Oriented x3, CN's nml (2-12), Motor nml, Sensation nml Conclusion/Plan - Problem List (1) CAP (community acquired pneumonia) Conclusion/Plan: He has had a cough that is productive of clear phlegm for the past several days and presented with a leukocytosis and chest x-ray findings concerning for bilateral pneumonia. He was last hospitalized at the beginning of February this this is likely community-acquired pneumonia. -Check COVID/RSV/influenza. -Blood cultures pending. Check sputum culture. -Incentive spirometry. -Continue IV ceftriaxone and doxycycline. (2) Leukocytosis Conclusion/Plan: His leukocytosis is most likely due to his pulmonary infection as noted above. He does have an infection of his right fourth toe however this does not appear significant at this time. -Continue IV antibiotics as noted above. Monitor blood cultures. -Repeat CBC tomorrow. (3) Elevated troponin level not due myocardial infarction Conclusion/Plan: His troponin elevation is stable on recheck while in the emergency department. His presenting chest pain is atypical for cardiac in nature and sounds more musculoskeletal in nature. His EKG is nonischemic however it is a paced rhythm. Given his chronic HFrEF and possible underlying cardiac amyloidosis, it is likely that this troponin elevation is demand ischemia in nature in the setting of possible sepsis and pneumonia. -Monitor on telemetry for now. Repeat troponin later tonight. -Currently anticoagulated with Coumadin, thus no need for heparin drip. -Placed on aspirin 81 mg for now. He does have a history of GI bleed several months ago so we will need to be mindful of this. -Had a recent echocardiogram in April 2024 that did not show any wall motion abnormalities. -Can discuss with his primary manufacture specialist, Dr. Ramirez, tomorrow regarding his cardiac care. (4) Chronic osteomyelitis of toe of right foot Conclusion/Plan: He has a history of osteomyelitis of the right second toe and does appear infected at this time. Follows with wound care clinic as an outpatient who saw him yesterday and prescribed doxycycline, however the patient has not been able to fill the prescription yet. -Continue doxycycline as noted above for pneumonia. -Continue outpatient wound care. Underwent outpatient debridement yesterday, no need for acute inpatient debridement at this time. (5) Peripheral vascular disease, unspecified Conclusion/Plan: Follows with Dr. Dalton of vascular surgery at [facility] in [place]. He apparently had an attempt at angioplasty on the left leg however the stenotic lesion below the knee was to severe to intervene upon (according to family). -Continue atorvastatin 40 mg. (6) CKD (chronic kidney disease) stage 3, GFR 30-59 ml/min Conclusion/Plan: His baseline renal function appears to have a creatinine between 1.3 and 1.5, thus he is currently at his baseline. -Renally dose medications as appropriate. Avoid unnecessary nephrotoxins. -Repeat chemistry panel tomorrow. (7) Gout Conclusion/Plan: -will reduce his allopurinol to 100 mg daily for now due to renal clearance. (8) Chronic HFrEF (heart failure with reduced ejection fraction) Conclusion/Plan: Follows with Dr. Ramirez at the [facility] cardiology clinic. His last ech ocardiogram was on 04/16/2024 which showed an increase echoes throughout the myocardium which was concerning for infiltrative cardiomyopathy versus hypertensive heart disease. 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 His LVEF is 50 to 55% currently but previously was 35 to 40% in the past. -Currently appears euvolemic to minimally fluid elevated. -Resume outpatient oral furosemide, spironolactone, metoprolol XL, losartan, Jardiance, atorvastatin. -Monitor for worsening fluid overload, consider IV diuresis if needed. Avoid IV fluids unless clinically needed. (9) Atrial fibrillation Conclusion/Plan: Currently is in a paced rhythm with an appropriate rate. He apparently is supposed to be evaluated for Watchman next week at [place]. -Continue metoprolol XL and warfarin. -Check daily INRs. (10) Complete heart block Conclusion/Plan: s/p PPM in the past. -His pacer was interrogated in the emergency department, with no abnormalities found. (11) Hypertension Conclusion/Plan: Currently controlled. -Resume home metoprolol XL and losartan and spironolactone. - Lab Results Fish Bones: 05/19/24 11:52 05/19/24 11:52 - Diagnostic Imaging Results Diagnostic Imaging Results: positive: Final report reviewed Diagnostic Imaging Results Comments: Chest X-ray (05/19/24): Bibasilar opacities, greater on the left, and small effusions with interstitial prominence. Findings may represent edema versus superimposed infection. Cardiomegaly. Consider future imaging surveillance to assess for resolution. TTE (04/16/2024): The left ventricle is normal in size. Left ventricular wall thickness is moderately increased. There is increased echo reflection in the myocardium. Differential diagnosis infiltrative cardiomyopathy versus hypertensive heart disease. Correlate clinically and consider workup to rule out cardiac amyloidosis. The ejection fraction is estimated to be 50 to 55%. Previously LVEF 35 to 40%. Compared to the prior exam, the left ventricular function is improved. The right ventricle is mild to moderately dilated. Right ventricular systolic function is moderately reduced. Previously mildly reduced. There is a pacemaker lead in the right ventricle. There is mild to moderate mitral regurgitation. Compared to the prior echo study, there has been no change in the severity of mitral regurgitation. There is mild to moderate aortic regurgitation. Previously mild aortic regurgitation. - EKG Results EKG Interpreted Independently: Yes EKG Findings: Atrial fibrillation with electronic ventricular pacemaker. HR 62. Core Measures - Anticipated LOS I expect patient to be DC'd or transferred within 96 hours.: Yes - DVT/VTE - Prophylaxis VTE/DVT Device ordered at admit?: Yes
[2024-05-19] MEDS: METOPROLOL SUCCINATE 25 MG TABLET PO SCH (22:34)
[2024-05-19] MEDS: MONTELUKAST 10 MG TABLET PO SCH (22:34)
[2024-05-19] MEDS: DOXYCYCLINE INJ 100 MG in SODIUM CHLORIDE 0.9% MINIBAG 100 ML IV SCH (22:35)
[2024-05-19] MEDS: SODIUM CHLORIDE FLUSH 0.9% 10 ML SYRINGE IVP PRN (22:35)
[2024-05-19] MEDS: ASPIRIN EC 81 MG TABLET PO SCH (22:35)
[2024-05-20] MEDS: SODIUM CHLORIDE FLUSH 0.9% 10 ML SYRINGE IVP SCH (02:14)
[2024-05-20 05:31] LABS: BASOPHILS % (AUTO) 0.2 %; EOSINOPHILS # (AUTO) 0.2 10^3/uL (0.0-0.7); EOSINOPHILS % (AUTO) 1.2 %; HCT - HEMATOCRIT 34.2 % (42.0-52.0); HGB - HEMOGLOBIN 11.5 g/dL (14.0-18.0); LYMPHOCYTES # (AUTO) 0.5 10^3/uL (1.5-3.5); LYMPHOCYTES % (AUTO) 2.6 %; MEAN CORPUSCULAR HEMOGLOBIN 31.1 pg (27.0-31.0); MEAN CORPUSCULAR HGB CONC 33.6 g/dL (32.0-36.0); MEAN CORPUSCULAR VOLUME 92.4 fL (80.0-94.0); MEAN PLATELET VOLUME 12.8 fL (7.4-11.4); MONOCYTES # (AUTO) 1.1 10^3/uL (0.0-1.0); MONOCYTES % (AUTO) 5.7 %; NEUTROPHILS # (AUTO) 16.7 10^3/uL (1.5-6.6); NEUTROPHILS % (AUTO) 89.9 %; NRBC ABSOLUTE COUNT (AUTO) 0.05 x10^3/uL; NUCLEATED RED BLOOD CELLS AUTO 0.3 /100WBC; PLT - PLATELET COUNT 194 10^3/uL (130-450); WHITE BLOOD COUNT 18.5 x10^3/uL (4.8-10.8)
[2024-05-20 05:35] LABS: INR 3.4 (0.8-1.2)
[2024-05-20 05:47] LABS: CALCIUM 9.4 mg/dL (8.5-10.3); CREATININE 1.5 mg/dL (0.6-1.3); POTASSIUM 3.9 mmol/L (3.5-4.5)
[2024-05-20] MEDS: PANTOPRAZOLE 40 MG TABLET PO SCH (07:01)
[2024-05-20] MEDS: TAMSULOSIN 0.4 MG CAPSULE PO SCH (08:58)
[2024-05-20] MEDS: FUROSEMIDE 40 MG TABLET PO SCH (08:58)
[2024-05-20] MEDS: FINASTERIDE 5 MG TABLET PO SCH (08:59)
[2024-05-20] MEDS ORDERED: WARFARIN 2.5 MG TABLET PO SCH (09:00)
[2024-05-20] MEDS: allopurinoL 100 MG TABLET PO SCH (09:00)
[2024-05-20] MEDS: cefTRIAXone 2 GM in SODIUM CHLORIDE 0.9% MINIBAG 100 ML IV SCH (09:00)
[2024-05-20] MEDS: LOSARTAN 50 MG TABLET PO SCH (09:00)
[2024-05-20] MEDS: ATORVASTATIN 40 MG TABLET PO SCH (09:00)
[2024-05-20] MEDS: SPIRONOLACTONE 25 MG TABLET PO SCH (09:00)
--- NOTE | 2024-05-20 12:11 | PHARMACY PROGRESS NOTE ---
- Best Possible Medication History Admit Date and Time: 05/19/24 1800 Processed by: Pharmacy Medications reviewed in ED?: Yes Medication History completed: Yes Patient Interview: Completed Secondary Source(s): Pharmacy records, Insurance records As the person ultimately responsible for medication therapy, providers are able to order a medication from an existing home medication list in [facility] via the "Reconcile Routine" prior to Confirmation of that medication by child support agent. Such practice is discouraged except when the physician, in their clinical judgment, deems that a medical need exists for a medication without regard to previous use. PT DOES NOT REMEMBER A LOT OF NAMES OR DOSES OF MEDICATIONS. NEARLY ALL ARE CONFIRMED WITH INSURANCE REPORTING and pharmacy records
[2024-05-20] MEDS: EMPAGLIFLOZIN 10 MG PO SCH (12:43)
--- NOTE | 2024-05-20 13:08 | PROVIDER PROGRESS NOTE ---
Subjective - Prog Note Date Prog Note Date: 05/20/24 Prog Note Time: 13:04 - Subjective Pt reports feeling: Improved Subjective: No acute events overnight. He reports that he feels overall slightly improved today with more energy. He denied having any chest pain however when he ambulated with physical therapy he did develop substernal chest pain that was brief in nature but described as "crushing". Denies having any cough or sputum production overnight and he remained afebrile. Objective - Vital Signs/Intake & Output Reviewed Vital Signs: Yes Vital Signs: Vital Signs x48h Temp Pulse Resp BP Pulse Ox 05/20/24 08:21 36.8 C 65 18 114/60 96 Intake & Output: Intake & Output 05/17/24 05/18/24 05/19/24 05/20/24 23:59 23:59 23:59 23:59 Intake Total 275 620 Output Total 330 Balance 275 290 - Objective General Appearance: positive: No acute distress, Alert, Mild distress Eyes Bilateral: positive: Normal inspection, PERRL, EOMI ENT: positive: ENT inspection nml, Pharynx nml, No signs of dehydration Neck: positive: Nml inspection, Thyroid nml, No JVD, Trachea midline Respiratory: positive: Chest non-tender, No respiratory distress, Rales (Subtle inspiratory crackles in both bases). negative: Wheezes, Rhonchi Cardiovascular: positive: No murmur, No gallop, Irregularly irregular Peripheral Pulses: 2+ Dorsalis pedis (R), 2+ Dorsalis pedis (L) Abdomen: positive: Non-tender, No organomegaly, Nml bowel sounds, No distention Back: positive: Nml inspection Skin: positive: Color nml, No rash, Warm, Dry Extremities: positive: Pedal edema (2+ pitting edema on right and 1+ pitting edema on left), Other (Left fourth toe with old wound that is healed. Right second toe with wound that is dressed and right toe is erythematous but with appropriate cap refill) Neurologic/Psychiatric: positive: Oriented x3, CN's nml (2-12), Motor nml, Sensation nml - Lab Results Fish Bones: 05/20/24 05:21 05/20/24 05:21 Other Labs: Lab Results x24hrs 05/20/24 05/20/2424 Range/Units 05:21 05:21 05:21 WBC 18.5 H (4.8-10.8) x10^3/uL RBC 3.70 L (4.70-6.10) 10^6/uL Hgb 11.5 L (14.0-18.0) g/dL Hct 34.2 L (42.0-52.0) % MCV 92.4 (80.0-94.0) fL MCH 31.1 H (27.0-31.0) pg MCHC 33.6 (32.0-36.0) g/dL RDW 18.0 H (12.0-15.0) % Plt Count 194 (130-450) 10^3/uL MPV 12.8 H (7.4-11.4) fL Neut # (Auto) 16.7 H (1.5-6.6) 10^3/uL Lymph # (Auto) 0.5 L (1.5-3.5) 10^3/uL [place] # (Auto) 1.1 H (0.0-1.0) 10^3/uL Eos # (Auto) 0.2 (0.0-0.7) 10^3/uL Baso # (Auto) 0.0 (0.0-0.1) 10^3/uL Absolute Nucleated RBC 0.05 x10^3/uL Nucleated RBC % 0.3 /100WBC PT 34.0 H (9.9-12.6) secs INR 3.4 H (0.8-1.2) APTT (24.9-33.3) secs Sodium 132 L (135-145) mmol/L Potassium 3.9 (3.5-4.5) mmol/L Chloride 104 (101-111) mmol/L Carbon Dioxide 17 L (21-32) mmol/L Anion Gap 11.0 (6-13) BUN 48 H (6-20) mg/dL Creatinine 1.5 H (0.6-1.3) mg/dL Estimated GFR (MDRD) 44 L (>89) Glucose 128 H (74-104) mg/dL Lactic Acid (0.5-2.2) mmol/L Calcium 9.4 (8.5-10.3) mg/dL Troponin I High Sens (2.3-19.7) ng/L B-Natriuretic Peptide (5-100) pg/mL Procalcitonin Immunoas (<0.5) ng/mL Urine Color Urine Clarity (CLEAR) Urine pH (5.0-7.5) PH Ur Specific [place] (1.002-1.030) Urine Protein (NEGATIVE) mg/dL Urine Glucose (UA) (NEGATIVE) mg/dL Urine Ketones (NEGATIVE) mg/dL Urine Occult Blood (NEGATIVE) Urine Nitrite (NEGATIVE) Urine Bilirubin (NEGATIVE) Urine Urobilinogen (NORMAL) E.U./dL Ur Leukocyte Esterase (NEGATIVE) Urine RBC (0-5) /HPF Urine WBC (0-3) /HPF Ur Squamous Epith Cells (<= Few) Amorphous Sediment /LPF Urine Bacteria (None Seen) /HPF Urine Casts /LPF Ur Microscopic Review Urine Culture Comments 05/19/24 05/19/24 05/19/24 Range/Units 21:09 14:37 13:41 WBC (4.8-10.8) x10^3/uL RBC (4.70-6.10) 10^6/uL Hgb (14.0-18.0) g/dL Hct (42.0-52.0) % MCV (80.0-94.0) fL MCH (27.0-31.0) pg MCHC (32.0-36.0) g/dL RDW (12.0-15.0) % Plt Count (130-450) 10^3/uL MPV (7.4-11.4) fL Neut # (Auto) (1.5-6.6) 10^3/uL Lymph # (Auto) (1.5-3.5) 10^3/uL [place] # (Auto) (0.0-1.0) 10^3/uL Eos # (Auto) (0.0-0.7) 10^3/uL Baso # (Auto) (0.0-0.1) 10^3/uL Absolute Nucleated RBC x10^3/uL Nucleated RBC % /100WBC PT (9.9-12.6) secs INR (0.8-1.2) APTT (24.9-33.3) secs Sodium (135-145) mmol/L Potassium (3.5-4.5) mmol/L Chloride (101-111) mmol/L Carbon Dioxide (21-32) mmol/L Anion Gap (6-13) BUN (6-20) mg/dL Creatinine (0.6-1.3) mg/dL Estimated GFR (MDRD) (>89) Glucose (74-104) mg/dL Lactic Acid 1.7 (0.5-2.2) mmol/L Calcium (8.5-10.3) mg/dL Troponin I High Sens 212.5 H* (2.3-19.7) ng/L B-Natriuretic Peptide (5-100) pg/mL Procalcitonin Immunoas (<0.5) ng/mL Urine Color DARK YELLOW Urine Clarity CLEAR (CLEAR) Urine pH 5.5 (5.0-7.5) PH Ur Specific [place] 1.020 (1.002-1.030) Urine Protein TRACE (NEGATIVE) mg/dL Urine Glucose (UA) >=1000 H (NEGATIVE) mg/dL Urine Ketones NEGATIVE (NEGATIVE) mg/dL Urine Occult Blood SMALL H (NEGATIVE) Urine Nitrite NEGATIVE (NEGATIVE) Urine Bilirubin NEGATIVE (NEGATIVE) Urine Urobilinogen 0.2 (NORMAL) (NORMAL) E.U./dL Ur Leukocyte Esterase NEGATIVE (NEGATIVE) Urine RBC 0-5 (0-5) /HPF Urine WBC 0-3 (0-3) /HPF Ur Squamous Epith Cells FEW Squamous (<= Few) Amorphous Sediment Rare /LPF Urine Bacteria None Seen (None Seen) /HPF Urine Casts 0-2 Hyaline Casts /LPF Ur Microscopic Review INDICATED Urine Culture Comments NOT INDICATED 05/19/24 05/19/24 05/19/24 Range/Units 13:41 11:52 11:52 WBC (4.8-10.8) x10^3/uL RBC (4.70-6.10) 10^6/uL Hgb (14.0-18.0) g/dL Hct (42.0-52.0) % MCV (80.0-94.0) fL MCH (27.0-31.0) pg MCHC (32.0-36.0) g/dL RDW (12.0-15.0) % Plt Count (130-450) 10^3/uL MPV (7.4-11.4) fL Neut # (Auto) (1.5-6.6) 10^3/uL Lymph # (Auto) (1.5-3.5) 10^3/uL [place] # (Auto) (0.0-1.0) 10^3/uL Eos # (Auto) (0.0-0.7) 10^3/uL Baso # (Auto) (0.0-0.1) 10^3/uL Absolute Nucleated RBC x10^3/uL Nucleated RBC % /100WBC PT (9.9-12.6) secs INR (0.8-1.2) APTT (24.9-33.3) secs Sodium (135-145) mmol/L Potassium (3.5-4.5) mmol/L Chloride (101-111) mmol/L Carbon Dioxide (21-32) mmol/L Anion Gap (6-13) BUN (6-20) mg/dL Creatinine (0.6-1.3) mg/dL Estimated GFR (MDRD) (>89) Glucose (74-104) mg/dL Lactic Acid (0.5-2.2) mmol/L Calcium (8.5-10.3) mg/dL Troponin I High Sens 219.9 H* (2.3-19.7) ng/L B-Natriuretic Peptide 1343 H (5-100) pg/mL Procalcitonin Immunoas 8.75 H* (<0.5) ng/mL Urine Color Urine Clarity (CLEAR) Urine pH (5.0-7.5) PH Ur Specific [place] (1.002-1.030) Urine Protein (NEGATIVE) mg/dL Urine Glucose (UA) (NEGATIVE) mg/dL Urine Ketones (NEGATIVE) mg/dL Urine Occult Blood (NEGATIVE) Urine Nitrite (NEGATIVE) Urine Bilirubin (NEGATIVE) Urine Urobilinogen (NORMAL) E.U./dL Ur Leukocyte Esterase (NEGATIVE) Urine RBC (0-5) /HPF Urine WBC (0-3) /HPF Ur Squamous Epith Cells (<= Few) Amorphous Sediment /LPF Urine Bacteria (None Seen) /HPF Urine Casts /LPF Ur Microscopic Review Urine Culture Comments 05/19/24 Range/Units 11:52 WBC (4.8-10.8) x10^3/uL RBC (4.70-6.10) 10^6/uL Hgb (14.0-18.0) g/dL Hct (42.0-52.0) % MCV (80.0-94.0) fL MCH (27.0-31.0) pg MCHC (32.0-36.0) g/dL RDW (12.0-15.0) % Plt Count (130-450) 10^3/uL MPV (7.4-11.4) fL Neut # (Auto) (1.5-6.6) 10^3/uL Lymph # (Auto) (1.5-3.5) 10^3/uL [place] # (Auto) (0.0-1.0) 10^3/uL Eos # (Auto) (0.0-0.7) 10^3/uL Baso # (Auto) (0.0-0.1) 10^3/uL Absolute Nucleated RBC x10^3/uL Nucleated RBC % /100WBC PT (9.9-12.6) secs INR (0.8-1.2) APTT 45.3 H (24.9-33.3) secs Sodium (135-145) mmol/L Potassium (3.5-4.5) mmol/L Chloride (101-111) mmol/L Carbon Dioxide (21-32) mmol/L Anion Gap (6-13) BUN (6-20) mg/dL Creatinine (0.6-1.3) mg/dL Estimated GFR (MDRD) (>89) Glucose (74-104) mg/dL Lactic Acid (0.5-2.2) mmol/L Calcium (8.5-10.3) mg/dL Troponin I High Sens (2.3-19.7) ng/L B-Natriuretic Peptide (5-100) pg/mL Procalcitonin Immunoas (<0.5) ng/mL Urine Color Urine Clarity (CLEAR) Urine pH (5.0-7.5) PH Ur Specific [place] (1.002-1.030) Urine Protein (NEGATIVE) mg/dL Urine Glucose (UA) (NEGATIVE) mg/dL Urine Ketones (NEGATIVE) mg/dL Urine Occult Blood (NEGATIVE) Urine Nitrite (NEGATIVE) Urine Bilirubin (NEGATIVE) Urine Urobilinogen (NORMAL) E.U./dL Ur Leukocyte Esterase (NEGATIVE) Urine RBC (0-5) /HPF Urine WBC (0-3) /HPF Ur Squamous Epith Cells (<= Few) Amorphous Sediment /LPF Urine Bacteria (None Seen) /HPF Urine Casts /LPF Ur Microscopic Review Urine Culture Comments Assessment/Plan - Problem List (1) CAP (community acquired pneumonia) Impression: He has had a cough that is productive of clear phlegm for the past several days and presented with a leukocytosis and chest x-ray findings concerning for bilateral pneumonia. -Check COVID/RSV/influenza (not obtained yet). -Blood cultures pending. Check sputum culture. -Incentive spirometry. -Continue IV ceftriaxone and doxycycline. (2) Elevated troponin level not due myocardial infarction Impression: His troponin elevation is stable on recheck while in the emergency department. His presenting chest pain is atypical for cardiac in nature and sounds more musculoskeletal in nature. His EKG is nonischemic however it is a paced rhythm. 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 -Monitor on telemetry. -Currently anticoagulated with Coumadin, thus no need for heparin drip. -Had a recent echocardiogram in April 2024 that did not show any wall motion abnormalities. -Discussed with his primary [employer] Staker, Dr. Ramirez, who indicates that he had a left heart catheterization in October 2023 which showed no significant obstructive coronary artery disease, thus his current troponin elevation is demand ischemia related. -Will discontinue Aspirin 81 mg given that he had a relatively recent GI bleed several months ago and he does not have any CAD. (3) Chronic osteomyelitis of toe of right foot Impression: He has a history of osteomyelitis of the right second toe and does appear infected at this time. Follows with wound care clinic as an outpatient who saw him yesterday and prescribed doxycycline, however the patient has not been able to fill the prescription yet. -Continue doxycycline as noted above for pneumonia. -Continue outpatient wound care. Underwent outpatient debridement the day prior to admission; no need for acute inpatient debridement at this time. (4) Acute on chronic HFrEF (heart failure with reduced ejection fraction) Impression: Follows with Dr. Ramirez at the [facility] cardiology clinic. His last echocardiogram was on 04/16/2024 which showed an increase echo throughout the myocardium which was concerning for infiltrative cardiomyopathy versus hypert ensive heart disease. 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 His LVEF is 50 to 55% currently but previously was 35 to 40% in the past. -Currently appears slightly fluid overloaded. Will place on IV lasix 40 mg daily. -Resume outpatient oral spironolactone, metoprolol XL, losartan, Jardiance, atorvastatin. -Monitor for worsening fluid overload, consider IV diuresis if needed. Avoid IV fluids unless clinically needed. (5) Peripheral vascular disease, unspecified Impression: Follows with Dr. Dalton of vascular surgery at [facility] in [place]. He apparently had an attempt at angioplasty on the left leg however the stenotic lesion below the knee was to severe to intervene upon (according to family). -Continue atorvastatin 40 mg. -No acute ischemic pathology at this time. (6) CKD (chronic kidney disease) stage 3, GFR 30-59 ml/min Impression: His baseline renal function appears to have a creatinine between 1.3 and 1.5, thus he is currently at his baseline. -Renally dose medications as appropriate. Avoid unnecessary nephrotoxins. -Repeat chemistry panel daily. (7) Gout Impression: No acute issues at this time. -Continue allopurinol. (8) Atrial fibrillation Impression: Currently is in a paced rhythm with an appropriate rate. He apparently is supposed to be evaluated for Watchman next week at [place]. -Continue metoprolol XL. -Check daily INRs. -Given supratherapeutic INR today, will hold todays dose of Warfarin and change dose from 2.5 mg to 1.5 mg daily starting tomorrow. (9) Complete heart block Impression: s/p PPM in the past. -His pacer was interrogated in the emergency department, with no abnormalities found. (10) Hypertension Impression: Currently controlled. -Resume home metoprolol XL and losartan and spironolactone.
[2024-05-20] MEDS: WARFARIN 1 MG TABLET PO SCH (14:06)
[2024-05-20] MEDS: FUROSEMIDE 20 MG/2 ML VIAL IVP SCH (14:06)
[2024-05-20 23:22] LABS: INFLUENZA A- RESP PCR PANEL NOT DETECTED; INFLUENZA B - RESP PCR PANEL NOT DETECTED; RSV- RESP PCR PANEL NOT DETECTED; SARS-CoV-2 -RESP PCR PANEL NOT DETECTED
[2024-05-21 05:15] LABS: BASOPHILS # (AUTO) 0.1 10^3/uL (0.0-0.1); BASOPHILS % (AUTO) 0.3 %; EOSINOPHILS # (AUTO) 0.2 10^3/uL (0.0-0.7); EOSINOPHILS % (AUTO) 0.8 %; HCT - HEMATOCRIT 31.1 % (42.0-52.0); HGB - HEMOGLOBIN 10.7 g/dL (14.0-18.0); LYMPHOCYTES # (AUTO) 0.6 10^3/uL (1.5-3.5); MEAN CORPUSCULAR HEMOGLOBIN 31.4 pg (27.0-31.0); MEAN CORPUSCULAR HGB CONC 34.4 g/dL (32.0-36.0); MEAN CORPUSCULAR VOLUME 91.2 fL (80.0-94.0); MEAN PLATELET VOLUME 12.3 fL (7.4-11.4); MONOCYTES # (AUTO) 1.2 10^3/uL (0.0-1.0); MONOCYTES % (AUTO) 5.8 %; NEUTROPHILS # (AUTO) 17.9 10^3/uL (1.5-6.6); NEUTROPHILS % (AUTO) 89.6 %; NRBC ABSOLUTE COUNT (AUTO) 0.09 x10^3/uL; NUCLEATED RED BLOOD CELLS AUTO 0.5 /100WBC; PLT - PLATELET COUNT 180 10^3/uL (130-450); RED BLOOD COUNT 3.41 10^6/uL (4.70-6.10); RED CELL DISTRIBUTION WIDTH 17.9 % (12.0-15.0)
[2024-05-21 05:33] LABS: CREATININE 1.5 mg/dL (0.6-1.3); POTASSIUM 3.6 mmol/L (3.5-4.5)
[2024-05-21 06:06] LABS: INR 3.2 (0.8-1.2); PT - PROTHROMBIN TIME 31.9 secs (9.9-12.6)
[2024-05-21] MEDS: FUROSEMIDE 20 MG/2 ML VIAL IVP SCH (08:14)
[2024-05-21] MEDS ORDERED: CEFEPIME 1 GM in SODIUM CHLORIDE 0.9% MINIBAG 100 ML IV SCH ×2 (09:00)
[2024-05-21] MEDS: SODIUM CHLORIDE 0.9% IV SCH (09:25)
[2024-05-21] MEDS: CEFEPIME IV SCH (09:25)
--- NOTE | 2024-05-21 14:02 | PROVIDER PROGRESS NOTE ---
Subjective - Prog Note Date Prog Note Date: 05/21/24 Prog Note Time: 13:46 - Subjective Pt reports feeling: Improved Subjective: No acute events overnight. He feels sleepy and fatigued today but denies any acute change. Denies any chest pain at rest but sometimes gets it with movement. Denies any cough, orthopnea, PND. Remains afebrile though blood pressure is slightly low today, in the 90-100 systolic range. Objective - Vital Signs/Intake & Output Reviewed Vital Signs: Yes Vital Signs: Vital Signs x48h Temp Pulse Resp BP Pulse Ox 05/21/24 09:00 36.6 C 64 18 101/56 L 95 Intake & Output: Intake & Output 05/18/24 05/19/24 05/20/24 05/21/24 23:59 23:59 23:59 23:59 Intake Total 275 1380 350 Output Total 330 275 Balance 275 1050 75 - Objective General Appearance: positive: No acute distress, Alert, Mild distress Eyes Bilateral: positive: Normal inspection, PERRL, EOMI ENT: positive: ENT inspection nml, Pharynx nml, No signs of dehydration Neck: positive: Nml inspection, Thyroid nml, No JVD Respiratory: positive: Chest non-tender, No respiratory distress, Breath sounds nml Cardiovascular: positive: No murmur, No gallop, Irregularly irregular Abdomen: positive: Non-tender, No organomegaly, Nml bowel sounds, No distention Extremities: positive: Pedal edema (2+ on right and 1+ on left) Neurologic/Psychiatric: positive: Oriented x3, CN's nml (2-12), Motor nml, Sensation nml - Lab Results Fish Bones: 05/21/24 04:48 05/21/24 04:48 Other Labs: Lab Results x24hrs 05/21/24 05/21/24 05/21/24 Range/Units 07:30 04:48 04:48 WBC (4.8-10.8) x10^3/uL RBC (4.70-6.10) 10^6/uL Hgb (14.0-18.0) g/dL Hct (42.0-52.0) % MCV (80.0-94.0) fL MCH (27.0-31.0) pg MCHC (32.0-36.0) g/dL RDW (12.0-15.0) % Plt Count (130-450) 10^3/uL MPV (7.4-11.4) fL Neut # (Auto) (1.5-6.6) 10^3/uL Lymph # (Auto) (1.5-3.5) 10^3/uL [place] # (Auto) (0.0-1.0) 10^3/uL Eos # (Auto) (0.0-0.7) 10^3/uL Baso # (Auto) (0.0-0.1) 10^3/uL Absolute Nucleated RBC x10^3/uL Nucleated RBC % /100WBC PT 31.9 H (9.9-12.6) secs INR 3.2 H (0.8-1.2) Sodium 130 L (135-145) mmol/L Potassium 3.6 (3.5-4.5) mmol/L Chloride 103 (101-111) mmol/L Carbon Dioxide 17 L (21-32) mmol/L Anion Gap 10.0 (6-13) BUN 54 H (6-20) mg/dL Creatinine 1.5 H (0.6-1.3) mg/dL Estimated GFR (MDRD) 44 L (>89) Glucose 121 H (74-104) mg/dL POC Whole Bld Glucose 106 H (70 - 100) mg/dL Calcium 9.0 (8.5-10.3) mg/dL Nasal Influenza B PCR Nasal Influenza A PCR Nasal RSV (PCR) Nasal SARS-CoV-2 (PCR) 05/21/24 05/20/24 Range/Units 04:48 22:23 WBC 20.0 H (4.8-10.8) x10^3/uL RBC 3.41 L (4.70-6.10) 10^6/uL Hgb 10.7 L (14.0-18.0) g/dL Hct 31.1 L (42.0-52.0) % MCV 91.2 (80.0-94.0) fL MCH 31.4 H (27.0-31.0) pg MCHC 34.4 (32.0-36.0) g/dL RDW 17.9 H (12.0-15.0) % Plt Count 180 (130-450) 10^3/uL MPV 12.3 H (7.4-11.4) fL Neut # (Auto) 17.9 H (1.5-6.6) 10^3/uL Lymph # (Auto) 0.6 L (1.5-3.5) 10^3/uL [place] # (Auto) 1.2 H (0.0-1.0) 10^3/uL Eos # (Auto) 0.2 (0.0-0.7) 10^3/uL Baso # (Auto) 0.1 (0.0-0.1) 10^3/uL Absolute Nucleated RBC 0.09 x10^3/uL Nucleated RBC % 0.5 /100WBC PT (9.9-12.6) secs INR (0.8-1.2) Sodium (135-145) mmol/L Potassium (3.5-4.5) mmol/L Chloride (101-111) mmol/L Carbon Dioxide (21-32) mmol/L Anion Gap (6-13) BUN (6-20) mg/dL Creatinine (0.6-1.3) mg/dL Estimated GFR (MDRD) (>89) Glucose (74-104) mg/dL POC Whole Bld Glucose (70 - 100) mg/dL Calcium (8.5-10.3) mg/dL Nasal Influenza B PCR NOT DETECTED Nasal Influenza A PCR NOT DETECTED Nasal RSV (PCR) NOT DETECTED Nasal SARS-CoV-2 (PCR) NOT DETECTED Assessment/Plan - Problem List (1) CAP (community acquired pneumonia) Impression: He has had a cough that is productive of clear phlegm for the past several days and presented with a leukocytosis and chest x-ray findings concerning for bilateral pneumonia. -Negative for COVID/Flu/RSV. -Blood cultures NGTD. Check sputum culture. -Incentive spirometry. -Continue IV doxycycline. Change ceftriaxone to Cefepime as his WBC is not responding. (2) Elevated troponin level not due myocardial infarction Impression: His troponin elevation is stable but elevated. His presenting chest pain is atypical for cardiac in nature and sounds more musculoskeletal in nature. His EKG is nonischemic however it is a paced rhythm. 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 -Monitor on telemetry. -Had a recent echocardiogram in April 2024 that did not show any wall motion abnormalities. -Discussed with his primary Fowl Blood Tester, Dr. Ramirez, who indicates that he had a left heart catheterization in October 2023 which showed no significant obstructive coronary artery disease, thus his current troponin elevation is demand ischemia related. -Will discontinue Aspirin 81 mg given that he had a relatively recent GI bleed several months ago and he does not have any CAD. -Checking TTE as noted below under CHF. (3) Acute on chronic HFrEF (heart failure with reduced ejection fraction) Impression: Follows with Dr. Ramirez at the [facility] cardiology clinic. His last echocardiogram was on 04/16/2024 which showed an increase echo throughout the myocardium which was concerning for infiltrative cardiomyopathy versus hypertensive heart disease. 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 His LVEF is 50 to 55% currently but previously was 35 to 40% in the past. -Currently appears slightly fluid overloaded. Received 40 mg IV lasix yesterday, will decrease to 20 mg IV lasix daily for now. -Holding oral spironolactone, metoprolol XL, losartan, due to hypotension. Continue home Jardiance, atorvastatin. -Obtain TTE to rule out stress-induced cardiomyopathy or other drastic change in LVEF. (4) Chronic osteomyelitis of toe of right foot Impression: He has a history of osteomyelitis of the right second toe and does appear infected at this time. Follows with wound care clinic as an outpatient who saw him yesterday and prescribed doxycycline, however the patient has not been able to fill the prescription yet. -Continue doxycycline as noted above for pneumonia. -Continue outpatient wound care. Underwent outpatient debridement the day prior to admission; no need for acute inpatient debridement at this time. (5) Peripheral vascular disease, unspecified Impression: Follows with Dr. Dalton of vascular surgery at [facility] in [place]. He apparently had an attempt at angioplasty on the left leg however the stenotic lesion below the knee was to severe to intervene upon (according to family). -Continue atorvastatin 40 mg. -No acute ischemic pathology at this time. (6) CKD (chronic kidney disease) stage 3, GFR 30-59 ml/min Impression: His baseline renal function appears to have a creatinine between 1.3 and 1.5, thus he is currently at his baseline. -Renally dose medications as appropriate. Avoid unnecessary nephrotoxins. -Repeat chemistry panel daily. Qualifiers: Chronic kidney disease stage 3 subtype: stage 3b (GFR 30-44) Qualified Code(s): N18.32 - Chronic kidney disease, stage 3b (7) Atrial fibrillation Impression: Currently is in a paced rhythm with an appropriate rate. He apparently is supposed to be evaluated for Watchman next week at [place]. -On metoprolol XL at home, holding currently due to hypotension. -Check daily INRs. -Given supratherapeutic INR today (and yesterday), will hold todays dose of Warfarin. Resume Warfarin at lower dose of 1.5 mg daily starting tomorrow. (8) Complete heart block Impression: s/p PPM in the past. -His pacer was interrogated in the emergency department, with no abnormalities found. (9) Hypertension Impression: Currently controlled. -Holding home metoprolol XL and losartan and spironolactone due to soft BP today. Qualifiers: Hypertension type: primary hypertension Qualified Code(s): I10 - Essential (primary) hypertension (10) Physical deconditioning Impression: -PT/OT recommending SNF placement. Will need SNF once medically ready (likely another 2-3 days for medical optimization).
[2024-05-22 05:46] LABS: BASOPHILS % (AUTO) 0.2 %; EOSINOPHILS % (AUTO) 0.1 %; HCT - HEMATOCRIT 31.2 % (42.0-52.0); HGB - HEMOGLOBIN 10.8 g/dL (14.0-18.0); LYMPHOCYTES # (AUTO) 0.4 10^3/uL (1.5-3.5); LYMPHOCYTES % (AUTO) 2.1 %; MEAN CORPUSCULAR HEMOGLOBIN 31.1 pg (27.0-31.0); MEAN CORPUSCULAR HGB CONC 34.6 g/dL (32.0-36.0); MEAN CORPUSCULAR VOLUME 89.9 fL (80.0-94.0); MEAN PLATELET VOLUME 12.4 fL (7.4-11.4); MONOCYTES # (AUTO) 0.9 10^3/uL (0.0-1.0); MONOCYTES % (AUTO) 4.9 %; NEUTROPHILS # (AUTO) 16.9 10^3/uL (1.5-6.6); NEUTROPHILS % (AUTO) 92.1 %; NRBC ABSOLUTE COUNT (AUTO) 0.23 x10^3/uL; NUCLEATED RED BLOOD CELLS AUTO 1.3 /100WBC; PLT - PLATELET COUNT 191 10^3/uL (130-450); RED BLOOD COUNT 3.47 10^6/uL (4.70-6.10); WHITE BLOOD COUNT 18.3 x10^3/uL (4.8-10.8)
[2024-05-22 06:09] LABS: CALCIUM 8.9 mg/dL (8.5-10.3); CREATININE 1.4 mg/dL (0.6-1.3); POTASSIUM 3.3 mmol/L (3.5-4.5)
[2024-05-22 06:13] LABS: INR 2.8 (0.8-1.2); PT - PROTHROMBIN TIME 28.1 secs (9.9-12.6)
[2024-05-22] MEDS ORDERED: VANCOMYCIN INJ 1.25 GM in SODIUM CHLORIDE 0.9% 500 ML IV STA (07:07)
[2024-05-22] MEDS ORDERED: VANCOMYCIN INJ 1.5 GM in SODIUM CHLORIDE 0.9% 500 ML IV STA (07:39)
[2024-05-22] MEDS: VANCOMYCIN INJ 1.5 GM in SODIUM CHLORIDE 0.9% 500 ML IV ONE (08:39)
[2024-05-22] MEDS: POTASSIUM CHLORIDE 20 MEQ TABLET PO ONE (08:41)
[2024-05-22] MEDS: AZITHROMYCIN INJ 500 MG in SODIUM CHLORIDE 0.9% 250 ML IV SCH (09:37)
[2024-05-22] MEDS: ACETAMINOPHEN 325 MG TABLET PO PRN (12:04)
[2024-05-22] MEDS ORDERED: ZINC OXIDE 20% OINT 30 GM TUBE TOP PRN (12:44)
[2024-05-22] MEDS: WARFARIN 1 MG TABLET PO SCH (14:02)
--- NOTE | 2024-05-22 14:10 | PROVIDER PROGRESS NOTE ---
Subjective - Prog Note Date Prog Note Date: 05/22/24 Prog Note Time: 14:07 - Subjective Pt reports feeling: Improved Subjective: No acute event overnight. He reports feeling overall much improved from admission and he appears better today compared to other days. Denies any chest pain though still has a cough productive of clear phlegm. Denies any abdominal pain, nausea, vomiting or diarrhea. His WBC has not been improving much and is MRSA nasal screen was positive. Objective - Vital Signs/Intake & Output Reviewed Vital Signs: Yes Vital Signs: Vital Signs x48h Temp Pulse Resp BP Pulse Ox 05/22/24 08:31 36.4 C L 68 20 118/57 L 96 Intake & Output: Intake & Output 05/19/24 05/20/24 05/21/24 05/22/24 23:59 23:59 23:59 23:59 Intake Total 275 9932 994 6705 Output Total 330 275 Balance 275 0352 773 4185 - Objective General Appearance: positive: No acute distress, Alert Eyes Bilateral: positive: Normal inspection, PERRL, EOMI ENT: positive: ENT inspection nml, Pharynx nml, No signs of dehydration Neck: positive: Nml inspection, Thyroid nml, No JVD, Trachea midline Respiratory: positive: No respiratory distress, Breath sounds nml. negative: Wheezes, Rales, Rhonchi Cardiovascular: positive: No murmur, No gallop, Irregularly irregular Peripheral Pulses: 1+ Dorsalis pedis (R), 1+ Dorsalis pedis (L) Abdomen: positive: Non-tender, No organomegaly, Nml bowel sounds, No distention Back: positive: Nml inspection Skin: positive: Color nml, No rash, Warm, Dry Extremities: positive: Pedal edema (2+ on right and 1+ on left) Neurologic/Psychiatric: positive: Oriented x3, CN's nml (2-12), Motor nml, Sensation nml - Lab Results Fish Bones: 05/22/24 05:24 05/22/24 05:24 Other Labs: Lab Results x24hrs 05/22/24 05/22/24 05/22/24 Range/Units 05:24 05:24 05:24 WBC 18.3 H (4.8-10.8) x10^3/uL RBC 3.47 L (4.70-6.10) 10^6/uL Hgb 10.8 L (14.0-18.0) g/dL Hct 31.2 L (42.0-52.0) % MCV 89.9 (80.0-94.0) fL MCH 31.1 H (27.0-31.0) pg MCHC 34.6 (32.0-36.0) g/dL RDW 18.0 H (12.0-15.0) % Plt Count 191 (130-450) 10^3/uL MPV 12.4 H (7.4-11.4) fL Neut # (Auto) 16.9 H (1.5-6.6) 10^3/uL Lymph # (Auto) 0.4 L (1.5-3.5) 10^3/uL [place] # (Auto) 0.9 (0.0-1.0) 10^3/uL Eos # (Auto) 0.0 (0.0-0.7) 10^3/uL Baso # (Auto) 0.0 (0.0-0.1) 10^3/uL Absolute Nucleated RBC 0.23 x10^3/uL Nucleated RBC % 1.3 /100WBC PT 28.1 H (9.9-12.6) secs INR 2.8 H (0.8-1.2) Sodium 131 L (135-145) mmol/L Potassium 3.3 L (3.5-4.5) mmol/L Chloride 104 (101-111) mmol/L Carbon Dioxide 18 L (21-32) mmol/L Anion Gap 9.0 (6-13) BUN 55 H (6-20) mg/dL Creatinine 1.4 H (0.6-1.3) mg/dL Estimated GFR (MDRD) 48 L (>89) Glucose 110 H (74-104) mg/dL Calcium 8.9 (8.5-10.3) mg/dL Nasal Screen MRSA (PCR) (NEGATIVE) 05/21/24 Range/Units 19:48 WBC (4.8-10.8) x10^3/uL RBC (4.70-6.10) 10^6/uL Hgb (14.0-18.0) g/dL Hct (42.0-52.0) % MCV (80.0-94.0) fL MCH (27.0-31.0) pg MCHC (32.0-36.0) g/dL RDW (12.0-15.0) % Plt Count (130-450) 10^3/uL MPV (7.4-11.4) fL Neut # (Auto) (1.5-6.6) 10^3/uL Lymph # (Auto) (1.5-3.5) 10^3/uL [place] # (Auto) (0.0-1.0) 10^3/uL Eos # (Auto) (0.0-0.7) 10^3/uL Baso # (Auto) (0.0-0.1) 10^3/uL Absolute Nucleated RBC x10^3/uL Nucleated RBC % /100WBC PT (9.9-12.6) secs INR (0.8-1.2) Sodium (135-145) mmol/L Potassium (3.5-4.5) mmol/L Chloride (101-111) mmol/L Carbon Dioxide (21-32) mmol/L Anion Gap (6-13) BUN (6-20) mg/dL Creatinine (0.6-1.3) mg/dL Estimated GFR (MDRD) (>89) Glucose (74-104) mg/dL Calcium (8.5-10.3) mg/dL Nasal Screen MRSA (PCR) POSITIVE A* (NEGATIVE) Assessment/Plan - Problem List (1) CAP (community acquired pneumonia) Impression: He has had a cough that is productive of clear phlegm and presented with a leukocytosis and chest x-ray findings concerning for bilateral pneumonia. -Negative for COVID/Flu/RSV. -Blood cultures NGTD. Not bringing up enough sputum for culture. -Incentive spirometry. -Changing antibiotics from Ceftriaxone/Doxycycline to IV Vancomycin, Cefepime and Azithromycin given lack of improvement in WBC in addition to positive MRSA nares screen. -Check ESR, CRP, Procalcitonin. Consider CT Chest and/or abdomen if not improving. (2) Elevated troponin level not due myocardial infarction Impression: His troponin elevation is stable but elevated. His presenting chest pain is atypical for cardiac in nature and sounds more musculoskeletal in nature. His EKG is nonischemic however it is a paced rhythm. 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 -Monitor on telemetry. -Had a recent echocardiogram in April 2024 that did not show any wall motion abnormalities. -Discussed with his primary Inspector Hand[employer], Dr. Ramirez, who indicates that he had a left heart catheterization in October 2023 which showed no significant obstructive coronary artery disease, thus his current troponin elevation is demand ischemia related. -Will discontinue Aspirin 81 mg given that he had a relatively recent GI bleed several months ago and he does not have any CAD. -Checking TTE as noted below under CHF. (3) Acute on chronic HFrEF (heart failure with reduced ejection fraction) Impression: Follows with Dr. Ramirez at the [facility] cardiology clinic. His last echocardiogram was on 04/16/2024 which showed an increase echo throughout the myocardium which was concerning for infiltrative cardiomyopathy versus hypertensive heart disease. 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 His LVEF is 50 to 55% currently but previously was 35 to 40% in the past. -Appears slightly volume overloaded two days ago. Received 40 mg IV lasix two days ago and 20 mg IV lasix yesterday. -Today appears volume depleted. Will discontinue IV lasix. -Holding oral spironolactone, metoprolol XL, losartan, due to hypotension. Continue home Jardiance, atorvastatin. -Obtain TTE tomorrow to rule out stress-induced cardiomyopathy or other drastic change in LVEF. (4) Chronic osteomyelitis of toe of right foot Impression: He has a history of osteomyelitis of the right second toe and does appear infected at this time. Follows with wound care clinic as an outpatient who saw him yesterday and prescribed doxycycline, however the patient has not been able to fill the prescription yet. -Changed antibiotics as noted above under pneumonia problem. -Continue outpatient wound care. Underwent outpatient debridement the day prior to admission; no need for acute inpatient debridement at this time. (5) Peripheral vascular disease, unspecified Impression: Follows with Dr. Dalton of vascular surgery at [facility] in [place]. He apparently had an attempt at angioplasty on the left leg however the stenotic lesion below the knee was to severe to intervene upon (according to family). -Continue atorvastatin 40 mg. -No acute ischemic pathology at this time. (6) CKD (chronic kidney disease) stage 3, GFR 30-59 ml/min Impression: His baseline renal function appears to have a creatinine between 1.3 and 1.5, thus he is currently at his baseline. -Renally dose medications as appropriate. Avoid unnecessary nephrotoxins. -Daily BMP. Qualifiers: Chronic kidney disease stage 3 subtype: stage 3b (GFR 30-44) Qualified Code(s): N18.32 - Chronic kidney disease, stage 3b (7) Atrial fibrillation Impression: Currently is in a paced rhythm with an appropriate rate. He apparently is supposed to be evaluated for Watchman this coming week at [place]. -On metoprolol XL at home, holding currently due to hypotension. -Check daily INRs. -Did have a supratherapeutic INR initially. Resume Warfarin at lower dose of 1.5 mg daily starting today. (8) Complete heart block Impression: s/p PPM in the past. -His pacer was interrogated in the emergency department, with no abnormalities found. (9) Hypertension Impression: Currently controlled. -Holding home metoprolol XL and losartan and spironolactone due to soft BP. Qualifiers: Hypertension type: primary hypertension Qualified Code(s): I10 - Essential (primary) hypertension (10) Physical deconditioning Impression: -PT/OT recommending SNF placement. Will need SNF once medically ready (likely another 1-2 days for medical optimization).
[2024-05-22] MEDS ORDERED: VANCOMYCIN INJ 1 GM in SODIUM CHLORIDE 0.9% 500 ML IV SCH (21:00)
[2024-05-22] MEDS: ethyl alcohoL 62% SWAB AMPULE NAS SCH (22:00)
[2024-05-23 05:34] LABS: BASOPHILS % (AUTO) 0.1 %; EOSINOPHILS # (AUTO) 0.1 10^3/uL (0.0-0.7); EOSINOPHILS % (AUTO) 0.4 %; HCT - HEMATOCRIT 30.6 % (42.0-52.0); HGB - HEMOGLOBIN 10.5 g/dL (14.0-18.0); LYMPHOCYTES # (AUTO) 0.4 10^3/uL (1.5-3.5); LYMPHOCYTES % (AUTO) 2.3 %; MEAN CORPUSCULAR HEMOGLOBIN 31.1 pg (27.0-31.0); MEAN CORPUSCULAR HGB CONC 34.3 g/dL (32.0-36.0); MEAN CORPUSCULAR VOLUME 90.5 fL (80.0-94.0); MEAN PLATELET VOLUME 11.8 fL (7.4-11.4); MONOCYTES % (AUTO) 6.1 %; NEUTROPHILS # (AUTO) 14.4 10^3/uL (1.5-6.6); NEUTROPHILS % (AUTO) 90.4 %; NRBC ABSOLUTE COUNT (AUTO) 0.31 x10^3/uL; NUCLEATED RED BLOOD CELLS AUTO 1.9 /100WBC; PLT - PLATELET COUNT 206 10^3/uL (130-450); RED BLOOD COUNT 3.38 10^6/uL (4.70-6.10); RED CELL DISTRIBUTION WIDTH 17.7 % (12.0-15.0); WHITE BLOOD COUNT 15.9 x10^3/uL (4.8-10.8)
[2024-05-23 05:43] LABS: INR 2.8 (0.8-1.2); PT - PROTHROMBIN TIME 28.5 secs (9.9-12.6)
[2024-05-23 06:02] LABS: CREATININE 1.4 mg/dL (0.6-1.3); MAGNESIUM 1.9 mg/dL (1.7-2.3); POTASSIUM 3.9 mmol/L (3.5-4.5)
[2024-05-23] MEDS: CEFEPIME 2 GM in SODIUM CHLORIDE 0.9% MINIBAG 100 ML IV SCH (08:29)
[2024-05-23] MEDS: VANCOMYCIN INJ 1 GM in SODIUM CHLORIDE 0.9% 250 ML IV SCH (11:12)
--- NOTE | 2024-05-23 12:19 | PROVIDER PROGRESS NOTE ---
Subjective - Prog Note Date Prog Note Date: 05/23/24 Prog Note Time: 12:16 - Subjective Pt reports feeling: Improved Subjective: No acute events overnight. He indicates overall feeling better than the past several days but does still have a cough that is productive of clear phlegm. He remains afebrile and denies any significant chest pain though he does note some midsternal sharp pain when he coughs. Denies any orthopnea, PND, vomiting or diarrhea. Yesterday his antibiotics were modified/broadened. His WBC has improved after this change. Of note physical therapy has recommended to the [facility] He usually lives in an where he has to go up 3 steps to enter. Objective - Vital Signs/Intake & Output Reviewed Vital Signs: Yes Vital Signs: Vital Signs x48h Temp Pulse Resp BP Pulse Ox 05/23/24 07:20 36.4 C L 65 18 131/62 H 98 Intake & Output: Intake & Output 05/20/24 05/21/24 05/22/24 05/23/24 23:59 23:59 23:59 23:59 Intake Total 2901 019 5389 823.4 Output Total 330 275 Balance 2226 219 9172 823.4 - Objective General Appearance: positive: No acute distress, Alert Eyes Bilateral: positive: Normal inspection, PERRL, EOMI ENT: positive: ENT inspection nml, Pharynx nml, No signs of dehydration Neck: positive: Nml inspection, Thyroid nml, No JVD, Trachea midline Respiratory: positive: No respiratory distress, Rales (Occasional scattered crackles posteriorly). negative: Wheezes, Rhonchi Cardiovascular: positive: No murmur, No gallop, Irregularly irregular Peripheral Pulses: 1+ Dorsalis pedis (R), 1+ Dorsalis pedis (L) Abdomen: positive: Non-tender, No organomegaly, Nml bowel sounds, No distention Back: positive: Nml inspection Skin: positive: Color nml, No rash, Warm, Dry Extremities: positive: Pedal edema (1+ bilaterally though right slightly larger), Other (Right second toe with darkened area from wound to 3 weeks ago but no surrounding erythema) Neurologic/Psychiatric: positive: Oriented x3, CN's nml (2-12), Motor nml, Sensation nml - Lab Results Fish Bones: 05/23/24 05:23 05/23/24 05:23 Other Labs: Lab Results x24hrs 05/23/24 05/23/24 05/23/24 Range/Units 05:23 05:23 05:23 WBC (4.8-10.8) x10^3/uL RBC (4.70-6.10) 10^6/uL Hgb (14.0-18.0) g/dL Hct (42.0-52.0) % MCV (80.0-94.0) fL MCH (27.0-31.0) pg MCHC (32.0-36.0) g/dL RDW (12.0-15.0) % Plt Count (130-450) 10^3/uL MPV (7.4-11.4) fL Neut # (Auto) (1.5-6.6) 10^3/uL Lymph # (Auto) (1.5-3.5) 10^3/uL [place] # (Auto) (0.0-1.0) 10^3/uL Eos # (Auto) (0.0-0.7) 10^3/uL Baso # (Auto) (0.0-0.1) 10^3/uL Absolute Nucleated RBC x10^3/uL Nucleated RBC % /100WBC ESR 42 H (0-20) mm/Hr PT 28.5 H (9.9-12.6) secs INR 2.8 H (0.8-1.2) Sodium (135-145) mmol/L Potassium (3.5-4.5) mmol/L Chloride (101-111) mmol/L Carbon Dioxide (21-32) mmol/L Anion Gap (6-13) BUN (6-20) mg/dL Creatinine (0.6-1.3) mg/dL Estimated GFR (MDRD) (>89) Glucose (74-104) mg/dL Calcium (8.5-10.3) mg/dL Magnesium (1.7-2.3) mg/dL C-Reactive Protein (<0.5) mg/dL Procalcitonin Immunoas 9.67 H* (<0.5) ng/mL 08/12/24 08/12/24 Range/Units 05:23 05:23 WBC 15.9 H (4.8-10.8) x10^3/uL RBC 3.38 L (4.70-6.10) 10^6/uL Hgb 10.5 L (14.0-18.0) g/dL Hct 30.6 L (42.0-52.0) % MCV 90.5 (80.0-94.0) fL MCH 31.1 H (27.0-31.0) pg MCHC 34.3 (32.0-36.0) g/dL RDW 17.7 H (12.0-15.0) % Plt Count 206 (130-450) 10^3/uL MPV 11.8 H (7.4-11.4) fL Neut # (Auto) 14.4 H (1.5-6.6) 10^3/uL Lymph # (Auto) 0.4 L (1.5-3.5) 10^3/uL [place] # (Auto) 1.0 (0.0-1.0) 10^3/uL Eos # (Auto) 0.1 (0.0-0.7) 10^3/uL Baso # (Auto) 0.0 (0.0-0.1) 10^3/uL Absolute Nucleated RBC 0.31 x10^3/uL Nucleated RBC % 1.9 /100WBC ESR (0-20) mm/Hr PT (9.9-12.6) secs INR (0.8-1.2) Sodium 133 L (135-145) mmol/L Potassium 3.9 (3.5-4.5) mmol/L Chloride 105 (101-111) mmol/L Carbon Dioxide 20 L (21-32) mmol/L Anion Gap 8.0 (6-13) BUN 55 H (6-20) mg/dL Creatinine 1.4 H (0.6-1.3) mg/dL Estimated GFR (MDRD) 48 L (>89) Glucose 110 H (74-104) mg/dL Calcium 9.0 (8.5-10.3) mg/dL Magnesium 1.9 (1.7-2.3) mg/dL C-Reactive Protein 25.0 H (<0.5) mg/dL Procalcitonin Immunoas (<0.5) ng/mL Assessment/Plan - Problem List (1) CAP (community acquired pneumonia) Impression: He has had a cough that is productive of clear phlegm and presented with a leuko cytosis and chest x-ray findings concerning for bilateral pneumonia. -Negative for COVID/Flu/RSV. -Blood cultures NGTD. Not bringing up enough sputum for culture. -Incentive spirometry. -Changed antibiotics from Ceftriaxone/Doxycycline to IV Vancomycin, Cefepime and Azithromycin given lack of improvement in WBC in addition to positive MRSA nares screen. -WBC now improved a bit with this change. -Obtaining CT Chest to rule out complication that would cause persistent leukocytosis. (2) Elevated troponin level not due myocardial infarction Impression: His troponin elevation is stable but elevated. His presenting chest pain is atypical for cardiac in nature and sounds more musculoskeletal in nature. His EKG is nonischemic however it is a paced rhythm. 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 -Monitor on telemetry. -Had a recent echocardiogram in April 2024 that did not show any wall motion abnormalities. -Discussed with his primary Asbestos Handler, Dr. Ramirez, who indicates that he had a left heart catheterization in October 2023 which showed no significant obstructive coronary artery disease, thus his current troponin elevation is demand ischemia related. -Checking TTE as noted below under CHF; obtaining today. (3) Acute on chronic HFrEF (heart failure with reduced ejection fraction) Impression: Follows with Dr. Ramirez at the [facility] cardiology clinic. His last echocardiogram was on 04/16/2024 which showed an increase echo throughout the myocardium which was concerning for infiltrative cardiomyopathy versus hypertensive heart disease. 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 His LVEF is 50 to 55% currently but previously was 35 to 40% in the past. -Appears slightly volume overloaded two days ago. Received IV lasix on admission, but now off lasix due to appearing volume depleted. -Holding oral spironolactone, metoprolol XL, losartan, due to hypotension. Continue home Jardiance, atorvastatin. -Obtain TTE today to rule out stress-induced cardiomyopathy or other drastic change in LVEF. (4) Chronic osteomyelitis of toe of right foot Impression: He has a history of osteomyelitis of the right second toe and does appear infected at this time. Follows with wound care clinic as an outpatient who saw him yesterday and prescribed doxycycline, however the patient has not been able to fill the prescription yet. -Changed antibiotics as noted above under pneumonia problem. -Continue outpatient wound care. Underwent outpatient debridement the day prior to admission; no need for acute inpatient debridement at this time. (5) Peripheral vascular disease, unspecified Impression: Follows with Dr. Dalton of vascular surgery at [facility] in [place]. He apparently had an attempt at angioplasty on the left leg however the stenotic lesion below the knee was to severe to intervene upon (according to family). -Continue atorvastatin 40 mg. -No acute ischemic pathology at this time. (6) CKD (chronic kidney disease) stage 3, GFR 30-59 ml/min Impression: His baseline renal function appears to have a creatinine between 1.3 and 1.5, thus he is currently at his baseline. -Renally dose medications as appropriate. Avoid unnecessary nephrotoxins. -Daily BMP. Qualifiers: Chronic kidney disease stage 3 subtype: stage 3b (GFR 30-44) Qualified Code(s): N18.32 - Chronic kidney disease, stage 3b (7) Atrial fibrillation Impression: Currently is in a paced rhythm with an appropriate rate. He apparently is supposed to be evaluated for Watchman this coming week at [place]. -On metoprolol XL at home, holding currently due to hypotension. -Check daily INRs. -Did have a supratherapeutic INR initially. Decrease warfarin to 1 mg daily. (8) Complete heart block Impression: s/p PPM in the past. -His pacer was interrogated in the emergency department, with no abnormalities found. (9) Hypertension Impression: Currently controlled. -Holding home metoprolol XL and losartan and spironolactone due to soft BP. -Hopefully can resume some medications tomorrow or next day. Qualifiers: Hypertension type: primary hypertension Qualified Code(s): I10 - Essential (primary) hypertension
[2024-05-23] MEDS: WARFARIN 1 MG TABLET PO SCH (14:25)
--- NOTE | 2024-05-23 16:04 | CT Report ---
PROCEDURE: Head WO INDICATIONS: Evaluate for stroke vs other pathology TECHNIQUE: Noncontrast 4.5 mm thick angled axial sections acquired from the foramen magnum to the vertex. For r adiation dose reduction, the following was used: automated exposure control, adjustment of mA and/or kV according to patient size. COMPARISON: None. FINDINGS: Image quality: Excellent. CSF spaces: Basal cisterns are patent. No extra-axial fluid collections. Ventricles are normal in size and shape. Brain: No midline shift. No intracranial masses or hemorrhage. Age-related global volume loss and chronic microvascular ischemic changes. Intracranial atherosclerotic vascular calcifications. Tiny fo cus of encephalomalacia within the right periventricular parietal lobe, consistent with old lacunar i nfarct. 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 Song-white matter interface is normal. Skull and face: Calvarium and visualized facial bones are intact, without suspicious lesions. Sinuses: Visualized sinuses and mastoids are clear. IMPRESSION: 1.No acute intracranial pathology. 2.Age-related global volume loss and chronic microvascular ischemic changes. 3.Mild encephalomalacia within the anterior left temporal lobe consistent with prior infarct or traum a. Reviewed by: Dwayne Porras MD on 05/23/2024 4:02 PM PDT Approved by: Dwayne Porras MD on 05/23/2024 4:02 PM PDT Station ID: [id number]
[2024-05-24 04:55] LABS: BASOPHILS % (AUTO) 0.2 %; EOSINOPHILS # (AUTO) 0.1 10^3/uL (0.0-0.7); HCT - HEMATOCRIT 31.1 % (42.0-52.0); HGB - HEMOGLOBIN 10.6 g/dL (14.0-18.0); LYMPHOCYTES # (AUTO) 0.5 10^3/uL (1.5-3.5); LYMPHOCYTES % (AUTO) 4.3 %; MEAN CORPUSCULAR HEMOGLOBIN 30.6 pg (27.0-31.0); MEAN CORPUSCULAR HGB CONC 34.1 g/dL (32.0-36.0); MEAN CORPUSCULAR VOLUME 89.9 fL (80.0-94.0); MEAN PLATELET VOLUME 11.4 fL (7.4-11.4); MONOCYTES % (AUTO) 7.8 %; NEUTROPHILS # (AUTO) 10.8 10^3/uL (1.5-6.6); NEUTROPHILS % (AUTO) 86.1 %; NRBC ABSOLUTE COUNT (AUTO) 0.32 x10^3/uL; NUCLEATED RED BLOOD CELLS AUTO 2.6 /100WBC; PLT - PLATELET COUNT 209 10^3/uL (130-450); RED BLOOD COUNT 3.46 10^6/uL (4.70-6.10); RED CELL DISTRIBUTION WIDTH 18.1 % (12.0-15.0); WHITE BLOOD COUNT 12.5 x10^3/uL (4.8-10.8)
[2024-05-24 05:01] LABS: INR 2.7 (0.8-1.2); PT - PROTHROMBIN TIME 27.8 secs (9.9-12.6)
[2024-05-24 05:12] LABS: CALCIUM 8.8 mg/dL (8.5-10.3); CREATININE 1.3 mg/dL (0.6-1.3); POTASSIUM 3.9 mmol/L (3.5-4.5)
--- NOTE | 2024-05-24 13:43 | PROVIDER PROGRESS NOTE ---
Subjective - Prog Note Date Prog Note Date: 05/24/24 Prog Note Time: 13:40 - Subjective Pt reports feeling: Improved Subjective: The patient is resting in his bed. He is sitting up eating his breakfast and dates that he is feeling much better than when he came to the hospital. He has had no fever or chills. No chest pain or heart palpitations. No nausea vomiting or diarrhea. No urinary complaint Current Medications - Current Medications Current Medications: Active Medications Generic Name Dose Route Start Last Admin Trade Name Darline PRN Reason Stop Dose Admin Acetaminophen 650 mg 05/19/24 18:00 05/24/24 12:01 Acetaminophen 325 Mg Tablet PO 650 mg Q4HR PRN Administration Pain 1 to 4, or Fever Alcohol 1 amp 05/22/24 21:00 05/24/24 08:27 Ethyl Alcohol 62% Swab Ampule SHANIQUA 1 amp BID MACKENZIE Administration Allopurinol 300 mg 05/20/24 09:00 05/24/24 08:29 Allopurinol 100 Mg Tablet PO 300 mg DAILY MACKENZIE Administration Atorvastatin Calcium 40 mg 05/20/24 09:00 05/24/24 08:30 Atorvastatin 40 Mg Tablet PO 40 mg DAILY MACKENZIE Administration Azithromycin 500 mg/ Sodium 250 mls @ 250 mls/hr 05/22/24 09:00 05/24/24 12:02 Chloride IV 05/25/24 08:59 Infused DAILY MACKENZIE Infusion Vancomycin HCl 1 gm/ Sodium 250 mls @ 167 mls/hr 05/23/24 10:00 05/24/24 12:02 Chloride IV Infused 1000 MACKENZIE Infusion Cefepime HCl 2 gm/ Sodium 100 mls @ 200 mls/hr 05/23/24 09:00 05/24/24 12:01 Chloride IV Infused DAILY MACKENZIE Infusion Montelukast Sodium 10 mg 05/19/24 21:00 05/23/24 20:35 Montelukast 10 Mg Tablet PO 10 mg QPM MACKENZIE Administration Multi-Ingredient Ointment 1 applic 05/22/24 12:44 Zinc Oxide 20% Oint 30 Gm Tube TOP PRN PRN Skin Care Ondansetron HCl 4 mg 05/19/24 18:00 Ondansetron Odt 4 Mg Tablet TL Q6HR PRN Nausea / Vomiting Pantoprazole Sodium 40 mg 05/20/24 07:00 05/24/24 04:46 Pantoprazole 40 Mg Tablet PO 40 mg QDAC MACKENZIE Administration Patient Own Med ( 1 each 05/20/24 09:00 05/24/24 08:30 Empagliflozin [ PO Not Given Jardiance] 10 Mg DAILY MACKENZIE Tablet) Sodium Chloride 10 ml 05/19/24 18:00 05/19/24 22:35 Sodium Chloride Flush 0.9% 10 Ml Syringe IVP 10 ml PRN PRN Administration NEEDED PER PROVIDER ORDERS Sodium Chloride 10 ml 05/20/24 01:00 05/24/24 08:31 Sodium Chloride Flush 0.9% 10 Ml Syringe IVP 10 ml 0100,0900,1700 MACKENZIE Administration Tamsulosin HCl 0.8 mg 05/20/24 09:00 05/24/24 08:30 Tamsulosin 0.4 Mg Capsule PO 0.8 mg DAILY MACKENZIE Administration Warfarin Sodium 1 mg 05/23/24 14:00 05/23/24 14:25 Warfarin 1 Mg Tablet PO 1 mg QDWARFARIN MACKENZIE Administration Dutasteride 0.5 mg PO DAILY 08/06/23 Furosemide [Lasix] 20 mg PO UD 08/06/23 Losartan Potassium 25 mg PO DAILY 08/06/23 Montelukast [Singulair] 10 mg PO QPM 08/06/23 Tamsulosin [Flomax] 2 cap PO DAILY 08/06/23 allopurinoL [Allopurinol] 300 mg PO DAILY 08/06/23 Atorvastatin Calcium 40 mg PO DAILY 09/17/23 Metoprolol Succinate [Toprol Xl] 25 mg PO BID 09/17/23 Spironolactone [Aldactone] 25 mg PO BID 09/17/23 Omeprazole 40 mg PO DAILY 03/23/24 Empagliflozin [Jardiance] 10 mg PO DAILY 05/18/24 Warfarin [Coumadin] 2.5 mg PO DAILY 05/19/24 Objective - Vital Signs/Intake & Output Reviewed Vital Signs: Yes Vital Signs: Vital Signs x48h Temp Pulse Resp BP Pulse Ox 05/24/24 07:22 36.4 C L 63 20 138/65 H 96 Intake & Output: Intake & Output 05/21/24 05/22/24 05/23/24 05/24/24 23:59 23:59 23:59 23:59 Intake Total 870 1400 1620.0 1395 Output Total 275 150 Balance 595 1400 1620.0 1245 - Objective General Appearance: positive: No acute distress Eyes Bilateral: positive: Normal inspection ENT: positive: ENT inspection nml Neck: positive: Nml inspection Respiratory: positive: Chest non-tender, No respiratory distress, Breath sounds nml Cardiovascular: positive: Regular rate & rhythm, No murmur, No gallop. negative: Friction rub Abdomen: positive: Non-tender, No organomegaly, Nml bowel sounds. negative: Guarding, Rebound Skin: positive: Color nml, No rash, Warm, Dry Extremities: positive: Non-tender, Full ROM Neurologic/Psychiatric: positive: Oriented x3, CN's nml (2-12) - Lab Results Fish Bones: 05/24/24 04:40 05/24/24 04:40 Other Labs: Lab Results x24hrs 05/24/24 05/24/24 05/24/24 Range/Units 04:40 04:40 04:40 WBC 12.5 H (4.8-10.8) x10^3/uL RBC 3.46 L (4.70-6.10) 10^6/uL Hgb 10.6 L (14.0-18.0) g/dL Hct 31.1 L (42.0-52.0) % MCV 89.9 (80.0-94.0) fL MCH 30.6 (27.0-31.0) pg MCHC 34.1 (32.0-36.0) g/dL RDW 18.1 H (12.0-15.0) % Plt Count 209 (130-450) 10^3/uL MPV 11.4 (7.4-11.4) fL Neut # (Auto) 10.8 H (1.5-6.6) 10^3/uL Lymph # (Auto) 0.5 L (1.5-3.5) 10^3/uL [place] # (Auto) 1.0 (0.0-1.0) 10^3/uL Eos # (Auto) 0.1 (0.0-0.7) 10^3/uL Baso # (Auto) 0.0 (0.0-0.1) 10^3/uL Absolute Nucleated RBC 0.32 x10^3/uL Nucleated RBC % 2.6 /100WBC PT 27.8 H (9.9-12.6) secs INR 2.7 H (0.8-1.2) Sodium 134 L (135-145) mmol/L Potassium 3.9 (3.5-4.5) mmol/L Chloride 106 (101-111) mmol/L Carbon Dioxide 20 L (21-32) mmol/L Anion Gap 8.0 (6-13) BUN 49 H (6-20) mg/dL Creatinine 1.3 (0.6-1.3) mg/dL Estimated GFR (MDRD) 52 L (>89) Glucose 113 H (74-104) mg/dL Calcium 8.8 (8.5-10.3) mg/dL Assessment/Plan - Problem List (1) CAP (community acquired pneumonia) Impression: The patient was initially treated with IV ceftriaxone and doxycycline. However this was changed to IV vancomycin, cefepime and azithromycin given lack of improvement in his white blood cell count in addition to positive MRSA nares screen. White blood cell count is improving. Will continue broad-spectrum IV antibiotics while he is in the hospital and change him over to an oral regimen when he goes to take his to rehab. (2) Non-ischemic myocardial injury (non-traumatic) Impression: This was felt to be nonischemic in nature. Likely due to his acute illness. No further workup unless he develops further symptoms. EKG was nonrevealing and the patient has had no evidence of chest pain. He had an echocardiogram on May 20, 2024 which revealed no evidence of wall motion abnormality (3) Chronic HFrEF (heart failure with reduced ejection fraction) Impression: EF has improved on most recent echo. Currently appears to be euvolemic. (4) Chronic osteomyelitis of toe of right foot Impression: This could be the reason the patient had persistent leukocytosis. His leukocytosis is improving with broad-spectrum antibiotics which will be continued for now (5) PAD (peripheral artery disease) Impression: The patient follows with Dr. Escudero of vascular surgery at [facility] in [place]. He apparently had an attempted angioplasty of the left leg however the stenotic lesion below the knee was too severe to intervene on. He will continue atorvastatin 40 mg daily. (7) CKD (chronic kidney disease) stage 3, GFR 30-59 ml/min Impression: Stable. Continue to monitor Qualifiers: Chronic kidney disease stage 3 subtype: stage 3b (GFR 30-44) Qualified Code(s): N18.32 - Chronic kidney disease, stage 3b (8) Paroxysmal atrial fibrillation Impression: Currently in a sinus rhythm and rate controlled. No issues during this hospitalization (9) Pacemaker Impression: The patient had a pacemaker placed due to a history of complete heart block. His pacemaker was interrogated in the emergency room and seems to be working properly (10) Hypertension Impression: The patient's metoprolol, losartan and Lasix were held at the time of admission. Blood pressure has improved. Will start back his metoprolol to tartrate today. However we will lower the dose to 12.5 mg twice daily. Continue to hold losartan and Lasix for now.. Qualifiers: Hypertension type: primary hypertension Qualified Code(s): I10 - Essential (primary) hypertension (11) Hyperlipidemia Impression: Continue atorvastatin 40 mg daily (12) BPH (benign prostatic hyperplasia) Impression: Continue Flomax 0.8 mg daily (13) Anemia Impression: Stable (14) Hyponatremia Impression: Chronic and stable (15) Sarcopenia Impression: With subsequent ambulatory dysfunction. Continue physical therapy and Occupational Therapy. He is awaiting placement for subacute rehabilitation. Disposition: Inpatient hospitalization remains necessary for disposition. The patient will continue broad-spectrum IV antibiotics here in the hospital and will be transitioned over to an oral regimen at discharge. Hopefully we will be able to get him out of the hospital in the next 24 to 48 hours Time spent: 35 minutes
[2024-05-24] MEDS: NYSTATIN 500000 UNITS/5 ML UDC PO SCH (18:18)
[2024-05-24] MEDS: MULTIVITAMIN W/MINERALS TABLET PO SCH (18:18)
[2024-05-24] MEDS: METOPROLOL TARTRATE 25 MG TABLET PO SCH (20:06)
--- NOTE | 2024-05-24 22:43 | CT Report ---
PROCEDURE: Chest WO INDICATIONS: Evaluate for loculated effusion TECHNIQUE: A CT scan of the chest was performed. Intravenous contrast media was not administered. Images were re corded and evaluated at appropriate window settings. Reformats: axial MIP of the chest, coronal and s agittal. For radiation dose reduction, the following was used: automated exposure control, adjustment of mA and/or kV according to patient size. COMPARISON: Chest x-ray 05/19/2024 FINDINGS: Image quality: Diagnostic. Chest wall and lower neck: No thyroid nodule which requires sonographic follow up. No axillary or sup raclavicular adenopathy by size. Moderate bilateral gynecomastia. Lungs and pleura: Small, posteriorly layering bilateral pleural effusions. Patchy airspace opacity at the left lung base. Mild right middle lobe airspace opacity in posterior right lower lobe density. M ild subpleural plaquing and reticulation anteriorly in the right middle lobe. Thickening along the le ft major fissure. Mild tree-in-bud nodularity in the left lower lobe parenchyma. Mild smooth reticula tion at the left lung apex. No focal mass. Mediastinum: Heart size is moderately enlarged with pacemaker leads present. Small pericardial effusi on. Mild coronary artery and aortic valvular calcification. Normal great vessel caliber. Numerous luly tty nodes in the high mediastinum and a prominent precarinal lymph node measuring 1.5 cm in short axi s. No hilar adenopathy. Normal esophagus without hiatal hernia. Bones: No suspicious bone lesions. Chronic, mild wedge deformity of T4. 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 Left renal cysts. Mild diffuse fat stranding throughout the upper perit oneum and retroperitoneum. IMPRESSION: Bilateral small, dependently layering pleural effusions. No loculated effusion. Moderate cardiomegaly with findings suggestive of volume overload. Shotty mediastinal lymph nodes with nonspecific, enlarged precarinal node, most likely reactive. Reviewed by: Gayathri Lebron MD on 05/24/2024 10:42 PM PDT Approved by: Gayathri Lebron MD on 05/24/2024 10:42 PM PDT Station ID: [id number]
[2024-05-25 00:41] VITALS: O2SAT 96
[2024-05-25 08:32] VITALS: BP 131/68
--- NOTE | 2024-05-25 10:48 | Discharge Plan ---
"Discharge Plan for SNF / [facility] - Discharge Plan And Transition Orders Problem Reviewed?: Yes Disposition: 03 SNF DC/Xfer Condition: Fair Allergies and Adverse Reactions: Allergies Allergy/AdvReac Type Severity Reaction Status Date / Time No Known Drug Allergies Allergy Verified 05/19/24 10:38 Health Concerns: You were admitted with community-acquired pneumonia. You received broad- spectrum IV antibiotics during this hospitalization. You will be sent out to complete a course of Levaquin. You have been found to be significantly weak after this acute illness. He will be going to rehab today. You do have chronic osteomyelitis of the right foot and will need to keep a close eye on this going forward. Assessment: The patient was seen on the day of discharge. He is stable for transfer to rehab today. - SNF / [facility] Transition Orders Admit to (Facility): [facility] Discharge Diagnosis: 1. Community-acquired pneumonia Improved. The patient will complete a course of p.o. Levaquin in the outpatient setting 2. Nonischemic myocardial injury Patient did have elevated troponins but this was felt to be nonischemic in nature due to his acute illness. EKG was nonrevealing. The patient had no evidence of chest pain. He did have an echocardiogram on May 20, 2024 which revealed no evidence of wall motion abnormalities. 3. Chronic systolic congestive heart failure The patient's EF has improved on his most recent echocardiogram. He is euvolemic on the day of discharge 4. Chronic osteomyelitis of the right foot This will need to be followed closely in the outpatient setting. No issues during this hospitalization 5. Peripheral arterial disease The patient follows with vascular surgery at [facility] in [place]. He apparently had an attempted angioplasty of the left leg however the stenotic lesion below the knee was too severe to intervene on. He will continue atorvastatin 40 mg daily 6. Chronic kidney disease stage III Stable 7. Paroxysmal atrial fibrillation Currently in a sinus rhythm and rate controlled 8. Pacemaker due to history of complete heart block His pacemaker was interrogated in the emergency room and seems to be working properly 9. Hypertension Continue decreased dose of metoprolol to tartrate 12.5 mg twice daily. Will continue to hold his losartan and Lasix at discharge 10. Hyperlipidemia Continue atorvastatin 40 mg daily 11. BPH Continue Flomax 0.8 mg daily 13. Anemia Likely due to chronic disease. Chronic and stable 14. Hyponatremia Chronic and stable 15. Sarcopenia with sybsequent ambulatory dysfunction The patient will be discharged today to subacute rehabilitation Medicare Certification Statement: I certify that [facility] Hospital alf care is medically necessary on a continuing basis for any of the conditions for which she/he is receiving care during hospitalization. Notify PCP of admission and forward orders to primary provider for signature. Weight on admission and: Weekly Other Notification Orders: Call PCP immediately if patient develops dyspnea, chest pain/tightness or edema. House Bowel Program: Yes Additional Bowel Program Orders: If no BM after 2 days, nurse may give M.O.M. 30ml PO PRN and/or ducolax Supp 1 LA and/or ALEXANDRE 250mg P.O., and/or senna 1-2 tabs PO. On day 3 nurse may give repeat above order until residents constipation is resolved. Annual Influenza Vaccine (between Jun 12 and January 09): Yes Two-step PPD per [facility] [phone] or approved exception documents: Yes Oxygen Orders: N/A Medication Orders: PLEASE REFER TO THE DISCHARGE MEDICATION LIST. Insulin Orders?: No - Medications New Prescriptions: Amox/Clav 875/125 [Augmentin 875/125 Tab] 1 tablet PO Q8H 5 Days #15 tablet - Diet Type: Geriatric Texture: Regular Liquids: Thin - Therapies | Activity Therapy: Evaluation | Treat if indicated: PT, OT, Swallowing / ST Rehabilitation Potential: Maximize functional status, Return to independent living Activity: No Restrictions Weight Bearing: Full Weight Assistance Devices: Walker Follow Up: Follow up with staff MD in 1 week"
--- NOTE | 2024-05-25 11:11 | DISCHARGE SUMMARY ---
Discharge Summary Admit Date: 05/19/24 Discharge Date: 05/25/24 Discharging Provider: Roxana Argueta PA-C Primary Care Provider: Dr Binu Heaton Code Status: Do Not Attempt Resuscitation Condition at Discharge: Fair Discharge Disposition: 03 SNF DC/Xfer Discharge Facility Name: [facility] - DIAGNOSES Discharge Diagnoses with Status of Each Condition: 1. Community-acquired pneumonia Improved. The patient will complete a course of p.o. Augmentin in the outpatient setting 2. Nonischemic myocardial injury Patient did have elevated troponins but this was felt to be nonischemic in nature due to his acute illness. EKG was nonrevealing. The patient had no evidence of chest pain. He did have an echocardiogram on May 20, 2024 which revealed no evidence of wall motion abnormalities. 3. Chronic systolic congestive heart failure The patient's EF has improved on his most recent echocardiogram. He is euvolemic on the day of discharge 4. Chronic osteomyelitis of the right foot This will need to be followed closely in the outpatient setting. No issues during this hospitalization 5. Peripheral arterial disease The patient follows with vascular surgery at [facility] in [place]. He apparently had an attempted angioplasty of the left leg however the stenotic lesion below the knee was too severe to intervene on. He will continue atorvastatin 40 mg daily 6. Chronic kidney disease stage III Stable 7. Paroxysmal atrial fibrillation Currently in a sinus rhythm and rate controlled 8. Pacemaker due to history of complete heart block His pacemaker was interrogated in the emergency room and seems to be working properly 9. Hypertension Continue decreased dose of metoprolol to tartrate 12.5 mg twice daily. Will continue to hold his losartan and Lasix at discharge 10. Hyperlipidemia Continue atorvastatin 40 mg daily 11. BPH Continue Flomax 0.8 mg daily 13. Anemia Likely due to chronic disease. Chronic and stable 14. Hyponatremia Chronic and stable 15. Sarcopenia with sybsequent ambulatory dysfunction The patient will be discharged today to subacute rehabilitation - [facility] History of Present Illness: From the admission HP: Mr. 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 The patient indicates that over the past 3 to 4 days he has been having a cough that is pr oductive of clear phlegm but he denies any significant shortness of breath at rest, orthopnea, PND, fevers, chills, rhinorrhea, sore throat or sick contacts. Two days ago he was lifting a heavy object up into his truck and then he developed some substernal chest pain that is intermittent in nature. It is sharp and very brief, lasting only 1 to 2 seconds before going away. Typically this comes when he tries to move something but he denies having any pleurisy or changes with lying flat versus sitting forward. Denies any nausea, diaphoresis, palpitations. In the past couple days he has also been having increasing generalized weakness and fatigue with malaise. Today he was having difficulty ambulating because he felt too weak to walk. He denies any focal neurologic deficit and has no headache, slurred speech or facial droop. Family noticed this and brought him to the emergency department for further evaluation. In the emergency department he was found to be afebrile with stable vital signs. His labs showed a WBC of 19.5 along with a creatinine of 1.5. His lactic acid was normal at 1.7 but his procalcitonin was elevated to 8.75. His BNP was 1340 and his troponin was elevated to 221 with a repeat troponin several hours later remaining stable at 220. His EKG appeared nonischemic in nature. His chest x- ray showed findings concerning for bibasilar pneumonia and blood cultures were obtained and he was given IV ceftriaxone and doxycycline and admitted for further care. Of note he has a history of chronic wounds to his feet with poor healing, usually on the left where he had a chronic wound for over a year that he was being followed in wound care, but that wound finally closed up on his toe. Several weeks ago he banged his right second toe on a door which caused it to break open and bleed extensively. He went to wound care yesterday and they felt that the right second toe was infected thus they prescribed doxycycline. He does follow with Dr. Dalton of vascular surgery at [facility] in [place]. Also of note he reports following with Dr. Ramirez in cardiology at [facility], who is concerned that he may have cardiac amyloidosis. Next week he is scheduled for a nuclear medicine study to evaluate for amyloidosis. The following week he is apparently scheduled to be evaluated at the cardiology clinic in [place] for a possible Watchman for his atrial fibrillation. The patient indicates he is also being referred to hematology, who is supposed to evaluate him today. The patient and his family member are not entirely sure why this evaluation was going to happen. - HOSPITAL COURSE Hospital Course: The patient was admitted to the hospital. He initially was started on IV ceftriaxone and doxycycline to cover community-acquired pneumonia. Unfortunately the patient's white blood cell count continued to rise and his antibiotic coverage was broadened to include IV vancomycin, cefepime and azithromycin. After this the patient began to recuperate. He was unable to see speech therapy during this hospitalization and would recommend a swallow study at the facility. I have noted the patient having difficulty swallowing when eating his breakfast. I suspect he possibly has aspirated. The patient's white blood cell count is greatly improved and he is back to his baseline. He significantly weak and debilitated after this acute illness. He will complete a course of p.o. Augmentin at the facility. I was notified by the discharge planners that the patient has a bed available today. He will be transferred to the facility and stable condition. Of note the patient does have chronic osteomyelitis of his right toe. This will need to be closely followed in the outpatient setting. He is on doxycycline for suppression as an outpatient that will be continued at discharge as well. - ALLERGIES Allergies/Adverse Reactions: Allergies Allergy/AdvReac Type Severity Reaction Status Date / Time No Known Drug Allergies Allergy Verified 05/19/24 10:38 - MEDICATIONS Home Medications: Ambulatory Orders Medication Instructions Recorded Confirmed Montelukast [Singulair] 10 mg PO QPM 08/06/23 05/19/24 Tamsulosin [Flomax] 2 cap PO DAILY 08/06/23 05/19/24 allopurinoL [Allopurinol] 300 mg PO DAILY 08/06/23 05/19/24 Atorvastatin Calcium 40 mg PO DAILY 09/17/23 05/19/24 Spironolactone [Aldactone] 25 mg PO BID 09/17/23 05/19/24 Omeprazole 40 mg PO DAILY 03/23/24 05/19/24 Doxycycline Hyclate 100 mg PO BID 30 Days #60 cap 05/18/24 05/19/24 Empagliflozin [Jardiance] 10 mg PO DAILY 05/18/24 05/19/24 Warfarin [Coumadin] 2.5 mg PO DAILY 05/19/24 05/19/24 Amox/Clav 875/125 [Augmentin 1 tablet PO Q8H 5 Days #15 tablet 05/25/24 875/125 Tab] Metoprolol Tartrate [Lopressor] 12.5 mg PO BID tab 05/25/24 Multivitamin W/Minerals [Theragran 1 tab PO DAILYWM tab 05/25/24 M] Nystatin [Mycostatin] 5 ml PO QID ea 05/25/24 Zinc Oxide 20% Oint [Zinc Oxide] 1 applic TOP PRN PRN each 05/25/24 - PHYSICAL EXAM AT DISCHARGE General Appearance: positive: No acute distress, Alert Eyes Bilateral: positive: Normal inspection ENT: positive: ENT inspection nml Neck: positive: Nml inspection Respiratory: positive: Chest non-tender, No respiratory distress, Breath sounds nml Cardiovascular: positive: Regular rate & rhythm, No murmur, No gallop. negative: Friction rub Abdomen: positive: Non-tender, No organomegaly, Nml bowel sounds Skin: positive: Color nml, No rash, Warm Extremities: positive: Non-tender, Full ROM Neurologic/Psychiatric: positive: Oriented x3, CN's nml (2-12) - LABS Result Diagrams: 05/24/24 04:40 05/24/24 04:40 - SEPSIS Current Stage of Sepsis: Ruled out - FOLLOW UP Follow Up: The patient will follow-up with the staff MD in 1 week. He should follow-up with Dr. Binu Heaton when he gets out of rehab. - TIME SPENT Time Spent in Discharge (Minutes): 45
== END 2024-05-25 13:40 | DRG 193 ==
LOC: EDUNIT# → ED 10:27 → MS2 18:00 → OBSVTOIN 05-20 12:30
PROVIDERS: ADMIT Hospitalist; ATTEND Physician Assistant
DX: J18.9 Pneumonia, unspecified organism (principal); R79.89 Other specified abnormal findings of blood chemistry; I48.91 Unspecified atrial fibrillation; I50.23 Acute on chronic systolic (congestive) heart failure; E87.1 Hypo-osmolality and hyponatremia; I13.0 Hypertensive heart and chronic kidney disease with heart failure and stage 1 through stage 4 chronic kidney disease, or unspecified chronic kidney disease; I5A Non-ischemic myocardial injury (non-traumatic); I87.2 Venous insufficiency (chronic) (peripheral); M86.671 Other chronic osteomyelitis, right ankle and foot; I44.2 Atrioventricular block, complete; I50.22 Chronic systolic (congestive) heart failure; N18.30 Chronic kidney disease, stage 3 unspecified; N18.32 Chronic kidney disease, stage 3b; I73.9 Peripheral vascular disease, unspecified; I48.0 Paroxysmal atrial fibrillation; Z79.01 Long term (current) use of anticoagulants; Z95.0 Presence of cardiac pacemaker; E78.5 Hyperlipidemia, unspecified; N40.0 Benign prostatic hyperplasia without lower urinary tract symptoms; D63.1 Anemia in chronic kidney disease; R53.1 Weakness; R13.10 Dysphagia, unspecified; M10.9 Gout, unspecified
CPT/HCPCS: 36415; 70450; 71045; 71250; 80048; 80053; 81001; 82550; 83605; 83735; 83880; 84145; 84484; 85025; 85610; 85651; 85730; 86140; 87040; 87070; 87205; 87635; 87637; 87640; 93005; 93307; 97162; 97166; 97530; 99284; 99285; A9270; G0378; J3370; 81003; 87086